=== PATIENT | female | born 1960 | race Caucasian/White ===

== ENCOUNTER 2018-12-05 18:48 | Emergency (ER) | payer MEDICARE, MEDICAID ==
[~2018-12-05] VITALS: Ht 172.7 cm; Wt 81.6 kg
[2018-12-05] MEDS ORDERED: PROM25TA14 PO (19:18)
[2018-12-05] MEDS ORDERED: IBUP-1773 PO (19:18)
[2018-12-05] MEDS ORDERED: DOCU-143 PO (19:18)
[2018-12-05] MEDS ORDERED: ATOR40TA70 PO (19:18)
[2018-12-05] MEDS ORDERED: ZOLM2.5S NS (19:18)
[2018-12-05] MEDS ORDERED: ONDA8TAB6 PO (19:18)
[2018-12-05] MEDS ORDERED: SUMA5SPR2 NS (19:18)
[2018-12-05] MEDS ORDERED: OXYC1TAB12 PO (19:18)
[2018-12-05] MEDS ORDERED: FLUO40CA12 PO (19:18)
[2018-12-05] MEDS ORDERED: DIHY1SPR3 NS (19:18)
[2018-12-05] MEDS ORDERED: LOSA25TA2 PO (19:18)
[2018-12-05] MEDS ORDERED: amovig (19:18)
[2018-12-05] MEDS ORDERED: ALPR0.5T PO (19:18)
[2018-12-05] MEDS ORDERED: ESTR10TA9 VG (19:18)
[2018-12-05] MEDS ORDERED: PROG100C6 PO (19:18)
[2018-12-05] MEDS ORDERED: PROMETHAZINE INJ 25 MG/ML (PHENERGAN) AMP IM STA (19:23)
[2018-12-05] MEDS ORDERED: fentaNYL INJECTION 100 MCG/2 ML AMP IM STA (19:23)
--- NOTE | 2018-12-05 19:55 | ED Headache ---
General Chief Complaint: Head/Cervical Problems Stated Complaint: MIGRAINE, NAUSEA, VOMITING Nursing Triage Note: Patient started having headache aura yesterday around noon. Has taken ibuprofen , zofran, zomig, and dhe for pain. Is rating pain at 10/10 and has been vomiting multiple times. Is overdue for her botox and amovig therapy for the migraines. Nursing Sepsis Screen: No Definite Risk History of Present Illness Date Seen by Provider: Dec 05, 2018 Time Seen by Provider: 19:14 Timing/Duration: other (2 days) Severity/Quality: moderate Location: frontal (left) Prior Headaches/Recent Trauma: chronic headaches Modifying Factors: improves with exposure to light Associated Symptoms: nausea/vomiting This is a 58-year-old female with a history of chronic migraines here complaining of recurrence of her typical migraine symptoms. This is left anterior, retro-orbital. No visual change or focal weakness, numbness, or tingling. She does have nausea and vomiting but this is not new for her. Her neck pain or neck stiffness. Usually has improvement with Botox injections but is overdue for this treatment. Allergies and Home Medications Allergies Coded Allergies: butorphanol (Verified Allergy, Unknown, 12/05/18) diphenhydramine (Verified Allergy, Unknown, 12/05/18) hydroxyzine (Verified Allergy, Unknown, 12/05/18) ketorolac (Verified Allergy, Unknown, 12/05/18) nalbuphine (Verified Allergy, Unknown, 12/05/18) prednisone (Verified Allergy, Unknown, 12/05/18) succinylcholine (Verified Allergy, Unknown, 12/05/18) tramadol (Verified Allergy, Unknown, 12/05/18) Home Medications Docusate Sodium 100 Mg Capsule, 100 MG PO DAILY, (Reported) Ibuprofen 600 Mg Tablet, 600 MG PO Q6H PRN for PAIN-MILD, (Reported) Losartan Potassium 25 Mg Tablet, 25 MG PO DAILY, (Reported) Oxycodone HCl/Acetaminophen 1 Each Tablet, 1 TAB PO Q8H PRN for PAIN-MODERATE, ( Reported) Promethazine HCl 25 Mg Tablet, 25 MG PO Q6H PRN for NAUSEA/VOMITING, (Reported) Patient Home Medication List Home Medication List Reviewed: Yes Review of Systems Review of Systems Constitutional: no symptoms reported Eyes: No Symptoms Reported Ears, Nose, Mouth, Throat: no symptoms reported Respiratory: no symptoms reported Cardiovascular: no symptoms reported Gastrointestinal: see HPI Genitourinary: no symptoms reported Musculoskeletal: no symptoms reported Skin: no symptoms reported Psychiatric/Neurological: Headache Past Mukutre-Xuvjrc-Vhkbcr Hx Patient Social History Alcohol Use: Denies Use Recreational Drug Use: No 2nd Hand Smoke Exposure: No Recent Foreign Travel: No Contact w/Someone Who Travel: No Recent Infectious Disease Expo: No Recent Hopitalizations: No Physical Abuse: No Sexual Abuse: No Mistreated: No Fear: No Past Medical History Respiratory: No Cardiac: No Headaches /Migraines Genitourinary: No Gastrointestinal: No Musculoskeletal: No Endocrine: No HEENT: No Cancer: No Psychosocial: No Integumentary: No Blood Disorders: No Adverse Reaction/Blood Tranf: No Physical Exam Vital Signs Vital Signs - First Documented 12/05/18 18:56 Temp 98.4 Pulse 112 Resp 16 B/P (MAP) 142/74 (96) Pulse Ox 97 Capillary Refill : Less Than 3 Seconds Height, Weight, BMI Height: 5'8.00" Weight: 180lbs. oz. 81.784216qd; BMI Method:Stated General Appearance: other (appears mildly uncomfortable, intermittently vomiting) HEENT: PERRL/EOMI, pharynx normal (edentulous) Neck: supple Cardiovascular: normal peripheral pulses, regular rate, rhythm Respiratory: lungs clear Gastrointestinal: non tender, soft Psychiatric: alert, oriented x 3 Crainal Nerves: normal hearing, normal speech, PERRL; No facial asymmetry, No facial paresthesias, No tongue deviation to R, No tongue deviation to L Coordination/Gait: normal finger to nose, normal gait Motor/Sensory: no motor deficit, no sensory deficit Skin: warm/dry Progress/Results/Core Measures Results/Orders My Orders Orders - LIZET BAUMANN DO Fentanyl Injection (Sublimaze Injection (12/05/18 19:23) Promethazine Injection (Phenergan Injec (12/05/18 19:23) Ondansetron Oral Dissolve Tab (Zofran (12/05/18 20:00) Vital Signs/I&O 12/05/18 12/05/18 18:56 19:42 Temp 98.4 98.4 Pulse 112 Resp 16 B/P (MAP) 142/74 (96) Pulse Ox 97 Blood Pressure Mean: 96 Progress Progress Note #1: Progress Note This is a 58-year-old female with a history of chronic migraines here for a headache that she states is completely typical for her. She states that she usually gets intramuscular injections of fentanyl and Phenergan and goes home. She is neurologically intact. She is nontoxic appearing. Vomiting also is not unusual for her headache syndrome. There is no indication for checking labs or imaging at this time. We'll reassess patient after she has been given analgesics and antiemetics. Progress Note #2: Progress Note Patient was feeling better and wanted to go home to "sleep it off". She did have some additional vomiting when she sat up and felt better after taking Zofran ODT. She would like to go home. She will return for any new or worsening symptoms. She will follow-up with her doctor as soon as possible. Departure Impression Primary Impression: Migraine Disposition: 01 HOME, SELF-CARE Condition: Stable Departure-Patient Inst. Referrals: SELF,ANNETTE ESTRADA (PCP) Primary Care Physician LIZET BAUMANN DO Dec 05, 2018 19:55
[2018-12-05] MEDS ORDERED: ONDANSETRON 4 MG (ZOFRAN) ORAL DISSOLVE TAB PO STA (20:00)
[2018-12-05 20:01] VITALS: BP 125/70
[2018-12-05 20:15] VITALS: BP 125/70
== END 2018-12-05 20:15 | disposition home or self-care (01) ==
LOC: ER FS 18:51
DX: G43.909 Migraine, unspecified, not intractable, without status migrainosus (principal); Z88.8 Allergy status to other drugs, medicaments and biological substances; Z88.4 Allergy status to anesthetic agent; Z88.6 Allergy status to analgesic agent
CPT/HCPCS: 99284

== ENCOUNTER 2018-12-22 19:05 | Emergency (ER) | payer MEDICARE, MEDICAID ==
[~2018-12-22] VITALS: Ht 172.7 cm; Wt 79.4 kg
[~2018-12-22 19:05] MED LIST: ALPR0.5T PO; ATOR40TA70 PO; DIHY1SPR3 NS; DOCU-143 PO; ESTR10TA9 VG; FLUO40CA12 PO; IBUP-1773 PO; LOSA25TA2 PO; ONDA8TAB6 PO; OXYC1TAB12 PO; PROG100C6 PO; PROM25TA14 PO; SUMA5SPR2 NS; ZOLM2.5S NS; amovig
[2018-12-22] MEDS ORDERED: fentaNYL INJECTION 100 MCG/2 ML AMP IM STA (19:28)
[2018-12-22] MEDS ORDERED: PROMETHAZINE INJ 25 MG/ML (PHENERGAN) AMP IM STA (19:28)
--- NOTE | 2018-12-22 19:31 | ED Headache ---
General Chief Complaint: Head/Cervical Problems Stated Complaint: MIGRAINE, NAUSEA, VOMITING History of Present Illness Date Seen by Provider: Dec 22, 2018 Time Seen by Provider: 19:22 This is a 58-year-old female with a history of chronic migraines who is here with her typical migraine symptom. This is a left-sided headache that began gradually 3 days ago. No neck pain or neck stiffness. No visual change or focal weakness, numbness, or tingling. No fever or chills. She states that intramuscular fentanyl and Phenergan usually help her symptoms. Allergies and Home Medications Allergies Coded Allergies: butorphanol (Verified Allergy, Unknown, 12/05/18) diphenhydramine (Verified Allergy, Unknown, 12/05/18) hydroxyzine (Verified Allergy, Unknown, 12/05/18) ketorolac (Verified Allergy, Unknown, 12/05/18) nalbuphine (Verified Allergy, Unknown, 12/05/18) prednisone (Verified Allergy, Unknown, 12/05/18) succinylcholine (Verified Allergy, Unknown, 12/05/18) tramadol (Verified Allergy, Unknown, 12/05/18) Home Medications Docusate Sodium 100 Mg Capsule, 100 MG PO DAILY, (Reported) Ibuprofen 600 Mg Tablet, 600 MG PO Q6H PRN for PAIN-MILD, (Reported) Losartan Potassium 25 Mg Tablet, 25 MG PO DAILY, (Reported) Oxycodone HCl/Acetaminophen 1 Each Tablet, 1 TAB PO Q8H PRN for PAIN-MODERATE, ( Reported) Promethazine HCl 25 Mg Tablet, 25 MG PO Q6H PRN for NAUSEA/VOMITING, (Reported) Patient Home Medication List Home Medication List Reviewed: Yes Review of Systems Review of Systems Constitutional: no symptoms reported Eyes: No Symptoms Reported Ears, Nose, Mouth, Throat: no symptoms reported Respiratory: no symptoms reported Cardiovascular: no symptoms reported Gastrointestinal: no symptoms reported Genitourinary: no symptoms reported Musculoskeletal: no symptoms reported Skin: no symptoms reported Psychiatric/Neurological: See HPI Past Vjrjzjg-Muqlns-Ctvxig Hx Past Med/Social Hx: Reviewed Nursing Past Med/Soc Hx Patient Social History 2nd Hand Smoke Exposure: No Recent Foreign Travel: No Contact w/Someone Who Travel: No Recent Hopitalizations: No Past Medical History Respiratory: No Cardiac: No Headaches /Migraines Genitourinary: No Gastrointestinal: No Musculoskeletal: No Endocrine: No HEENT: No Cancer: No Psychosocial: No Integumentary: No Blood Disorders: No Adverse Reaction/Blood Tranf: No Physical Exam Vital Signs Vital Signs - First Documented 12/22/18 19:13 Temp 98.8 Pulse 91 Resp 16 B/P (MAP) 138/80 (99) Pulse Ox 99 O2 Delivery Room Air Capillary Refill : Height, Weight, BMI Height: 5'8.00" Weight: 180lbs. oz. 81.859705zs; BMI Method:Stated General Appearance: no apparent distress HEENT: PERRL/EOMI, pharynx normal Neck: supple Cardiovascular: normal peripheral pulses, regular rate, rhythm Respiratory: lungs clear Gastrointestinal: non tender, soft Psychiatric: alert, oriented x 3; No depressed affect Crainal Nerves: normal hearing, normal speech, PERRL; No facial droop, No facial paresthesias, No gaze palsy, No tongue deviation to R, No tongue deviation to L Coordination/Gait: normal finger to nose, normal gait Motor/Sensory: no motor deficit, no sensory deficit Skin: warm/dry Progress/Results/Core Measures Results/Orders My Orders Orders - LIZET BAUMANN DO Fentanyl Injection (Sublimaze Injection (12/22/18 19:28) Promethazine Injection (Phenergan Injec (12/22/18 19:28) Vital Signs/I&O 12/22/18 19:13 Temp 98.8 Pulse 91 Resp 16 B/P (MAP) 138/80 (99) Pulse Ox 99 O2 Delivery Room Air Progress Progress Note #1: Progress Note Patient is nontoxic appearing and says that this headache is identical to many prior. We will treat her symptomatically and will continue to monitor. Progress Note #2: Progress Note Patient feels much better and is requesting to go home. Stable for discharge. Follow-up with primary care physician. Departure Impression Primary Impression: Headache Disposition: 01 HOME, SELF-CARE Condition: Stable Departure-Patient Inst. Referrals: ANNETTE OBRIEN MD (PCP) Primary Care Physician Patient Instructions: Headache, Adult (DC) LIZET BAUMANN DO Dec 22, 2018 19:31
[2018-12-22 20:29] VITALS: BP 136/75
== END 2018-12-22 20:29 | disposition home or self-care (01) ==
LOC: EDUNIT# 19:05 → ER FS 19:08
DX: R51 Headache (principal); Z88.8 Allergy status to other drugs, medicaments and biological substances; Z88.4 Allergy status to anesthetic agent; Z86.69 Personal history of other diseases of the nervous system and sense organs; Z88.6 Allergy status to analgesic agent
CPT/HCPCS: 99284

== ENCOUNTER 2019-01-17 16:39 | Emergency (ER) | payer MEDICARE, MEDICAID ==
[~2019-01-17] VITALS: Ht 172.7 cm; Wt 79.4 kg
--- NOTE | 2019-01-17 16:57 | ED Headache ---
General Stated Complaint: MIGRAINE, NAUSEA History of Present Illness Date Seen by Provider: Jan 17, 2019 Time Seen by Provider: 16:57 Initial Comments Patient presents to emergency department for evaluation of migraine headache she describes as behind both eyes causing photophobia and nausea but no fevers chills vomiting neck stiffness unilateral weakness numbness tingling or neurologic changes. She has a long-standing history of migraines and has to come into the emergency department approximately once every month she says this headache is not particularly different or worse but her home medications are not helping. She says she is scheduled for Botox next week. Allergies and Home Medications Allergies Coded Allergies: butorphanol (Verified Allergy, Unknown, 01/17/19) diphenhydramine (Verified Allergy, Unknown, 01/17/19) hydroxyzine (Verified Allergy, Unknown, 01/17/19) ketorolac (Verified Allergy, Unknown, 01/17/19) nalbuphine (Verified Allergy, Unknown, 01/17/19) prednisone (Verified Allergy, Unknown, 01/17/19) succinylcholine (Verified Allergy, Unknown, 01/17/19) tramadol (Verified Allergy, Unknown, 01/17/19) Home Medications Docusate Sodium 100 Mg Capsule, 100 MG PO DAILY, (Reported) Ibuprofen 600 Mg Tablet, 600 MG PO Q6H PRN for PAIN-MILD, (Reported) Losartan Potassium 25 Mg Tablet, 25 MG PO DAILY, (Reported) Oxycodone HCl/Acetaminophen 1 Each Tablet, 1 TAB PO Q8H PRN for PAIN-MODERATE, ( Reported) Promethazine HCl 25 Mg Tablet, 25 MG PO Q6H PRN for NAUSEA/VOMITING, (Reported) Patient Home Medication List Home Medication List Reviewed: Yes Review of Systems Review of Systems Constitutional: No chills, No fever Eyes: Denies Blurred Vision; Photophobia Respiratory: No short of breath Cardiovascular: No chest pain Gastrointestinal: nausea; No vomiting Psychiatric/Neurological: Headache; Denies Numbness, Denies Tingling, Denies Weakness All Other Systems Reviewed Negative Unless Noted: Yes Past Wowgoia-Nitmlx-Zbhmrn Hx Patient Social History 2nd Hand Smoke Exposure: No Recent Foreign Travel: No Contact w/Someone Who Travel: No Recent Hopitalizations: No Immunizations Up To Date Tetanus Booster (TDap): Unknown Seasonal Allergies Seasonal Allergies: No Past Medical History Surgeries: Yes (BILATERAL MASTECTOMY, BILAT BREAST AUGMENTATION) Appendectomy, Orthopedic Respiratory: No Cardiac: Yes Hypertension Neurological: Yes 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 oz. 79.785655nu; BMI Method:Stated General Appearance: WD/WN, no apparent distress HEENT: PERRL/EOMI Neck: non-tender Cardiovascular: normal peripheral pulses, regular rate, rhythm Respiratory: no respiratory distress, no accessory muscle use Psychiatric: alert, oriented x 3 Skin: normal color, warm/dry Progress/Results/Core Measures Results/Orders My Orders Orders - BRADLEY COOK DO Promethazine Injection (Phenergan Injec (01/17/19 17:00) Fentanyl Injection (Sublimaze Injection (01/17/19 17:00) Vital Signs/I&O 01/17/19 16:51 Temp 97.0 Pulse 87 Resp 18 B/P (MAP) 149/84 (105) Pulse Ox 98 Progress Progress Note : Progress Note Patient given her typical Phenergan and fentanyl intramuscularly. She says she goes hope and rests and then wakes up better. Given she appears well with normal neuro exam and no red flag s/s will dc in stable condition with instructions to return with any concerns. Departure Impression Primary Impression: Migraine Disposition: 01 HOME, SELF-CARE Condition: Stable Departure-Patient Inst. Decision time for Depature: 17:08 Referrals: SELFANNETTE MD (PCP) Primary Care Physician Patient Instructions: Migraine Headache (DC) BRADLEY COOK DO Jan 17, 2019 16:57
[2019-01-17] MEDS ORDERED: PROMETHAZINE INJ 25 MG/ML (PHENERGAN) AMP IM ONE (17:00)
[2019-01-17] MEDS ORDERED: fentaNYL INJECTION 100 MCG/2 ML AMP IM ONE (17:00)
[2019-01-17 17:19] VITALS: BP 149/84
== END 2019-01-17 17:20 | disposition home or self-care (01) ==
LOC: EDUNIT# 16:39 → ER FS 16:40
DX: G43.909 Migraine, unspecified, not intractable, without status migrainosus (principal); I10 Essential (primary) hypertension; F32.9 Major depressive disorder, single episode, unspecified; Z98.51 Tubal ligation status; Z88.8 Allergy status to other drugs, medicaments and biological substances; Z88.4 Allergy status to anesthetic agent; Z88.6 Allergy status to analgesic agent; Z90.13 Acquired absence of bilateral breasts and nipples; Z90.49 Acquired absence of other specified parts of digestive tract
CPT/HCPCS: 99284

== ENCOUNTER 2019-01-27 19:43 | Emergency (ER) | payer MEDICARE, MEDICAID ==
[~2019-01-27] VITALS: Ht 172.7 cm; Wt 79.4 kg
[2019-01-27] MEDS ORDERED: BUT (20:44)
[2019-01-27] MEDS ORDERED: APAP (20:44)
[2019-01-27] MEDS ORDERED: CAF (20:44)
[2019-01-27] MEDS ORDERED: PROMETHAZINE INJ 25 MG/ML (PHENERGAN) AMP IM ONE (21:00)
[2019-01-27] MEDS ORDERED: fentaNYL INJECTION 100 MCG/2 ML AMP IM ONE (21:00)
--- NOTE | 2019-01-27 21:13 | ED Headache ---
General Chief Complaint: Head/Cervical Problems Stated Complaint: HEADACHE History of Present Illness Date Seen by Provider: Jan 27, 2019 Time Seen by Provider: 21:13 Initial Comments Patient presenting to ED for evaluation of a headache. She says it has been going on all day long and is not getting better. She has associated nausea and photophobia but no fevers, chills, nausea, vomiting, neck stiffness. She has a history of migraine headaches and says that this headache is exactly the same as prior migraine headaches. She says it is not worse and there is no difference in the type of pain. She says she usually gets fentanyl and Phenergan intramuscularly and goes home and sleeps and her pain is much improved. Patient was seen by me 10 days ago for the same and she appears exactly the same. She is in no obvious distress with normal vital signs. Allergies and Home Medications Allergies Coded Allergies: butorphanol (Verified Allergy, Unknown, 01/27/19) diphenhydramine (Verified Allergy, Unknown, 01/27/19) hydroxyzine (Verified Allergy, Unknown, 01/27/19) ketorolac (Verified Allergy, Unknown, 01/27/19) nalbuphine (Verified Allergy, Unknown, 01/27/19) prednisone (Verified Allergy, Unknown, 01/27/19) succinylcholine (Verified Allergy, Unknown, 01/27/19) tramadol (Verified Allergy, Unknown, 01/27/19) Home Medications Docusate Sodium 100 Mg Capsule, 100 MG PO DAILY, (Reported) Ibuprofen 600 Mg Tablet, 600 MG PO Q6H PRN for PAIN-MILD, (Reported) Losartan Potassium 25 Mg Tablet, 25 MG PO DAILY, (Reported) Oxycodone HCl/Acetaminophen 1 Each Tablet, 1 TAB PO Q8H PRN for PAIN-MODERATE, ( Reported) Promethazine HCl 25 Mg Tablet, 25 MG PO Q6H PRN for NAUSEA/VOMITING, (Reported) Patient Home Medication List Home Medication List Reviewed: Yes Review of Systems Review of Systems Constitutional: No chills, No fever Eyes: Denies Blurred Vision Respiratory: No short of breath Cardiovascular: No chest pain Gastrointestinal: nausea; No vomiting Psychiatric/Neurological: Headache All Other Systems Reviewed Negative Unless Noted: Yes Past Gjbjlcq-Kafbxe-Qpavtx Hx Patient Social History 2nd Hand Smoke Exposure: No Recent Foreign Travel: No Contact w/Someone Who Travel: No Recent Hopitalizations: No Immunizations Up To Date Tetanus Booster (TDap): Unknown Seasonal Allergies Seasonal Allergies: No Past Medical History Surgeries: Yes (BILATERAL MASTECTOMY, BILAT BREAST AUGMENTATION) Appendectomy, Orthopedic Respiratory: No Cardiac: Yes Hypertension Neurological: Yes 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 oz. 79.667986jl; BMI Method:Stated General Appearance: WD/WN HEENT: PERRL/EOMI Cardiovascular: regular rate, rhythm Respiratory: lungs clear, normal breath sounds Psychiatric: alert, oriented x 3 Coordination/Gait: normal finger to nose, normal gait Motor/Sensory: no motor deficit, no sensory deficit Skin: normal color, warm/dry Progress/Results/Core Measures Results/Orders Medications Given in ED Current Medications Medications Dose Ordered Sig/Ronaldo Route Start Time Stop Time Status Last Admin Dose Admin Fentanyl Citrate 50 mcg ONCE ONCE IM 01/27/19 21:00 01/27/19 21:01 DC 01/27/19 21:12 50 MCG Promethazine HCl 50 mg ONCE ONCE IM 01/27/19 21:00 01/27/19 21:01 DC 01/27/19 21:11 50 MG Progress Progress Note : Progress Note Patient given typical migraine cocktail and is feeling better. Repeat neurologic exam is normal. Even patient appears well with normal vital signs benign physical exam she'll be discharged in stable condition told to follow with primary care provider and come back to the ED sooner if worsening pain fevers vomiting vaginal concerns. Patient aware and agreeable with plan and verbalized understanding of the above instructions. Departure Impression Primary Impression: Headache Disposition: 01 HOME, SELF-CARE Condition: Stable Departure-Patient Inst. Decision time for Depature: 21:19 Referrals: SELFANNETTE MD (PCP/Family) Primary Care Physician BRADLEY COOK DO Jan 27, 2019 21:13
[2019-01-27 21:20] VITALS: BP 134/82
== END 2019-01-27 21:20 | disposition home or self-care (01) ==
LOC: EDUNIT# 19:43 → ER FS 19:45
DX: R51 Headache (principal); I10 Essential (primary) hypertension; F32.9 Major depressive disorder, single episode, unspecified; Z98.51 Tubal ligation status; Z88.8 Allergy status to other drugs, medicaments and biological substances; Z86.69 Personal history of other diseases of the nervous system and sense organs; Z88.6 Allergy status to analgesic agent; Z88.4 Allergy status to anesthetic agent; Z90.13 Acquired absence of bilateral breasts and nipples; Z90.49 Acquired absence of other specified parts of digestive tract
CPT/HCPCS: 96372; 99284

== ENCOUNTER 2019-02-16 10:27 | Emergency (ER) | payer MEDICARE, MEDICAID ==
[~2019-02-16] VITALS: Ht 172.7 cm; Wt 79.4 kg
[~2019-02-16 10:27] MED LIST changes: +APAP; +BUT; +CAF
--- NOTE | 2019-02-16 10:57 | ED Headache ---
General Chief Complaint: Head/Cervical Problems Stated Complaint: HEADACHE Nursing Triage Note: Patient c/o migraine, nausea, and vomiting. States migraine started Tuesday afternoon and she has tried all of her home medications with no relief. Nursing Sepsis Screen: No Definite Risk Source: patient, RN notes reviewed, old records Exam Limitations: no limitations History of Present Illness Date Seen by Provider: February 16, 2019 Time Seen by Provider: 10:48 Initial Comments Patient presents once again c/ c/o migraine and requesting an injection of Fentanyl and Phenergan IM. Believe this is her 4th visit for 2019. States she has a long history of Migraines and this one is similar. This one started . Very nauseated. States her Neurologist is in [place]. States she tried all her home meds s/ success. No known fever. No history of recent head injury, or trauma. Timing/Duration: constant (x 3 days) Severity/Quality: moderate (8/10), constant, throbbing Location: other (left sided) Prior Headaches/Recent Trauma: frequent headaches Modifying Factors: improves with other (none known) Associated Symptoms: denies symptoms (x/ as noted.) Allergies and Home Medications Allergies Coded Allergies: butorphanol (Verified Allergy, Unknown, 01/27/19) diphenhydramine (Verified Allergy, Unknown, 01/27/19) hydroxyzine (Verified Allergy, Unknown, 01/27/19) ketorolac (Verified Allergy, Unknown, 01/27/19) nalbuphine (Verified Allergy, Unknown, 01/27/19) prednisone (Verified Allergy, Unknown, 01/27/19) succinylcholine (Verified Allergy, Unknown, 01/27/19) tramadol (Verified Allergy, Unknown, 01/27/19) Home Medications Docusate Sodium 100 Mg Capsule, 100 MG PO DAILY, (Reported) Ibuprofen 600 Mg Tablet, 600 MG PO Q6H PRN for PAIN-MILD, (Reported) Losartan Potassium 25 Mg Tablet, 25 MG PO DAILY, (Reported) Oxycodone HCl/Acetaminophen 1 Each Tablet, 1 TAB PO Q8H PRN for PAIN-MODERATE, ( Reported) Promethazine HCl 25 Mg Tablet, 25 MG PO Q6H PRN for NAUSEA/VOMITING, (Reported) Patient Home Medication List Home Medication List Reviewed: Yes Review of Systems Review of Systems Constitutional: see HPI Eyes: See HPI, Photophobia Gastrointestinal: see HPI, nausea : No Psychiatric/Neurological: See HPI, Headache All Other Systems Reviewed Negative Unless Noted: Yes (Negative excepted noted.) Past Uzxqvnf-Tilqah-Qmthmg Hx Patient Social History Alcohol Use: Denies Use Recreational Drug Use: No Smoking Status: Never a Smoker 2nd Hand Smoke Exposure: No Recent Foreign Travel: No Contact w/Someone Who Travel: No Recent Infectious Disease Expo: No Recent Hopitalizations: No Physical Abuse: No Sexual Abuse: No Mistreated: No Fear: No Immunizations Up To Date Tetanus Booster (TDap): Unknown Seasonal Allergies Seasonal Allergies: No Past Medical History Surgeries: Yes (BILATERAL MASTECTOMY, BILAT BREAST AUGMENTATION) Appendectomy, Orthopedic, Tubal Ligation Respiratory: No Cardiac: Yes Hypertension Neurological: Yes 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 oz. 79.093347vc; BMI Method:Stated General Appearance: WD/WN, mild distress HEENT: PERRL/EOMI, photophobia Neck: supple Cardiovascular: regular rate, rhythm Respiratory: no respiratory distress Psychiatric: alert, oriented x 3, depressed affect Crainal Nerves: normal hearing, normal speech, PERRL Coordination/Gait: normal finger to nose Motor/Sensory: no pronator drift Skin: warm/dry Progress/Results/Core Measures Results/Orders My Orders Orders - LUCINA CROWLEY DO Fentanyl Injection (Sublimaze Injection (02/16/19 11:00) Promethazine Injection (Phenergan Injec (02/16/19 11:00) Vital Signs/I&O 02/16/19 10:34 Temp 97.8 Pulse 80 Resp 20 B/P (MAP) 127/70 (89) Pulse Ox 97 O2 Delivery Room Air Blood Pressure Mean: 89 Progress Progress Note : Progress Note Against my better judgement, I'm going to go ahead and give her her requested cocktail. Did share c/ the patient my concerns c/ continuing to treat her headaches this way. Find it difficult to believe she is truly allergic to all the medications listed, especially when the majority of them are used in several migraine protocols in an effort not to give narcotics. She states she is working on wean her narcotics down. Has reportedly had one round of Botox, but then she states she broke both of her ankles and hasn't been able to follow up. States she is trying to qualify for assistance for some of the newer migraine prevention meds. Departure Impression Primary Impression: Migraine Additional Impression: Narcotic dependence Disposition: 01 HOME, SELF-CARE Condition: Stable Departure-Patient Inst. Referrals: SELF,ANNETTE ESTRADA (PCP/Family) Primary Care Physician Patient Instructions: Migraine Headache (DC) LUCINA CROWLEY DO February 16, 2019 10:57
[2019-02-16] MEDS ORDERED: PROMETHAZINE INJ 25 MG/ML (PHENERGAN) AMP IM ONE (11:00)
[2019-02-16] MEDS ORDERED: fentaNYL INJECTION 100 MCG/2 ML AMP IM ONE (11:00)
[2019-02-16 11:17] VITALS: BP 125/68
== END 2019-02-16 11:17 | disposition home or self-care (01) ==
LOC: EDUNIT# 10:27 → ER FS 10:29
DX: G43.909 Migraine, unspecified, not intractable, without status migrainosus (principal); F11.20 Opioid dependence, uncomplicated; I10 Essential (primary) hypertension; F32.9 Major depressive disorder, single episode, unspecified; Z88.8 Allergy status to other drugs, medicaments and biological substances; Z88.6 Allergy status to analgesic agent; Z88.4 Allergy status to anesthetic agent; Z90.13 Acquired absence of bilateral breasts and nipples; Z90.49 Acquired absence of other specified parts of digestive tract; Z98.51 Tubal ligation status
CPT/HCPCS: 96372

== ENCOUNTER 2019-03-13 15:04 | Emergency (ER) | payer MEDICARE, MEDICAID ==
[~2019-03-13] VITALS: Ht 172.7 cm; Wt 79.4 kg
[2019-03-13] MEDS ORDERED: fentaNYL INJECTION 100 MCG/2 ML AMP IM STA (15:55)
--- NOTE | 2019-03-13 15:59 | ED Headache ---
General Chief Complaint: Head/Cervical Problems Stated Complaint: MIGRAINE Nursing Triage Note: PT REPORTS SHE HAS ANOTHER MIGRAINE (6TH VISIT) IN LAST FEW MONTHS. SHE IS REQUESTING 50 MG OF PHENERGAN AND FENTANYL. PHOTOPHOBIA. Nursing Sepsis Screen: No Definite Risk History of Present Illness Date Seen by Provider: Mar 13, 2019 Time Seen by Provider: 15:20 Initial Comments The patient is a 59-year-old female with a long and disabling history of migraine headaches. She follows very closely with a headache neurologist for her disabling weekly headaches and has innumerable medications at home to treat them, including oxycodone which she is slowly being weaned off by her neurologist. She presents with concern for several days of gradual onset headache which she states feels identical to her typical migraine headaches. Associated nausea and photophobia and phonophobia. No associated fevers, focal weakness, numbness, tingling, neck stiffness, vision changes, shortness of breath or chest pain. Patient states she typically gets a cocktail of fentanyl and Phenergan for her headaches. I did speak with her at some length about this treatment and that it is not standard of care for headache at this time but after discussion I explained to her that I was willing to provide this treatment as she is already on a home narcotic, with the caveat that I feel it is probably not the best choice for long-term ongoing use. Patient understood and agreed. Allergies and Home Medications Allergies Coded Allergies: butorphanol (Verified Allergy, Unknown, 01/27/19) diphenhydramine (Verified Allergy, Unknown, 01/27/19) hydroxyzine (Verified Allergy, Unknown, 01/27/19) ketorolac (Verified Allergy, Unknown, 01/27/19) nalbuphine (Verified Allergy, Unknown, 01/27/19) prednisone (Verified Allergy, Unknown, 01/27/19) succinylcholine (Verified Allergy, Unknown, 01/27/19) tramadol (Verified Allergy, Unknown, 01/27/19) Home Medications Docusate Sodium 100 Mg Capsule, 100 MG PO DAILY, (Reported) Ibuprofen 600 Mg Tablet, 600 MG PO Q6H PRN for PAIN-MILD, (Reported) Losartan Potassium 25 Mg Tablet, 25 MG PO DAILY, (Reported) Oxycodone HCl/Acetaminophen 1 Each Tablet, 1 TAB PO Q8H PRN for PAIN-MODERATE, (Reported) Promethazine HCl 25 Mg Tablet, 25 MG PO Q6H PRN for NAUSEA/VOMITING, (Reported) Patient Home Medication List Home Medication List Reviewed: Yes Review of Systems Review of Systems Constitutional: see HPI All Other Systems Reviewed Negative Unless Noted: Yes Past Uwvyhyy-Ffohst-Mlgknm Hx Past Med/Social Hx: Reviewed Nursing Past Med/Soc Hx Patient Social History Alcohol Use: Denies Use Recreational Drug Use: No Smoking Status: Never a Smoker 2nd Hand Smoke Exposure: No Recent Foreign Travel: No Contact w/Someone Who Travel: No Recent Infectious Disease Expo: No Recent Hopitalizations: No Physical Abuse: No Sexual Abuse: No Mistreated: No Fear: No Immunizations Up To Date Tetanus Booster (TDap): Unknown Seasonal Allergies Seasonal Allergies: No Past Medical History Surgeries: Yes (BILATERAL MASTECTOMY, BILAT BREAST AUGMENTATION) Appendectomy, Orthopedic, Tubal Ligation Respiratory: No Cardiac: Yes Hypertension Neurological: Yes Headaches /Migraines [employer] History: Tubal Ligation Genitourinary: No Gastrointestinal: Yes (ESOPHAGEAL STRICTURE) Musculoskeletal: No Endocrine: No HEENT: No Cancer: No Psychosocial: Yes Depression Integumentary: No Blood Disorders: No Adverse Reaction/Blood Tranf: No Family Medical History Reviewed Nursing Family Hx Physical Exam Vital Signs Vital Signs - First Documented 03/13/19 15:36 Temp 97.7 Pulse 87 Resp 20 B/P (MAP) 126/64 (84) O2 Delivery Room Air Capillary Refill : Less Than 3 Seconds Height, Weight, BMI Height: 5'8.00" Weight: 175lbs. oz. 79.650466kx; BMI Method:Stated General Appearance: no apparent distress Comments This is an older female appearing nontoxic and in no acute distress. Head is normocephalic and atraumatic. Neck is supple and nontender. Oropharynx is moist. Lungs are clear to auscultation at all stations. There is normal S1 and S2 without rubs or gallops and capillary refill is appropriate, less than 2 seconds globally. Abdomen is soft, nontender nondistended. Skin is warm and dry without cyanosis, clubbing or edema. Psychiatrically, the patient was treated appropriate mood and affect and is alert. From a neurologic standpoint, cranial nerves II through XII are intact and there are no lateralizing deficits noted. Speech is normal. Language is normal. Coordination is normal. There is no dysmetria to zyvbrl-jj-hfpf or ybbf-hs-ykyk bilaterally. Strength is 5 out of 5 in all joints of bilateral upper and lower caries. Sensation is intact light touch in bilateral upper and lower extremities. Patient is alert and oriented 4. She ambulates with a narrow, steady gait in the emergency department. Progress/Results/Core Measures Results/Orders My Orders Orders - LEANDRO COOPER MD Promethazine Injection (Phenergan Injec (03/13/19 16:00) Fentanyl Injection (Sublimaze Injection (03/13/19 15:55) Vital Signs/I&O 03/13/19 15:36 Temp 97.7 Pulse 87 Resp 20 B/P (MAP) 126/64 (84) O2 Delivery Room Air Blood Pressure Mean: 84 Progress Progress Note : Time: 16:08 Progress Note Patient is feeling better after medication. She feels ready to go home. No red flags for her headache today. We'll discharge and have her follow-up in the next 1-2 days with her primary care physician and with her neurologist. She un derstands and agrees. She understands if she feels worse instead of better or develops other new symptoms of concern that she should return immediately for reevaluation. All questions are answered. Departure Impression Primary Impression: Headache Disposition: 01 HOME, SELF-CARE Condition: Improved Departure-Patient Inst. Referrals: ANNETTE OBRIEN MD (PCP/Family) Primary Care Physician Add. Discharge Instructions: Follow-up in the next 1-2 days with her primary care physician and with her neurologist. Return right away if symptoms worsen or if other symptoms of concern develop. Use her home medications for headache as prescribed. LEANDRO COOPER MD Mar 13, 2019 15:59
[2019-03-13] MEDS ORDERED: PROMETHAZINE INJ 25 MG/ML (PHENERGAN) AMP IM ONE (16:00)
[2019-03-13 16:10] VITALS: BP 141/85
--- OUTSIDE RECORDS SUMMARY | 2019-03-13 20:11 | XMS REPORT | Continuity of Care Document ---
Author Organization Unknown Address Unknown Allergies Active Description Code Type Severity Reaction Onset Reported/Identified Relationship to Patient Clinical Status Yes butorphanol [id number] Drug Allergy Unknown N/A 01/27/2019 Yes diphenhydramine [id number] Drug Allergy Unknown N/A 01/27/2019 Yes hydroxyzine [id number] Drug Allergy Unknown N/A 01/27/2019 Yes ketorolac [id number] Drug Allergy Unknown N/A 01/27/2019 Yes nalbuphine [id number] Drug Allergy Unknown N/A 01/27/2019 Yes prednisone [id number] Drug Allergy Unknown N/A 01/27/2019 Yes succinylcholine [id number] Drug Allergy Unknown N/A 01/27/2019 Yes tramadol [id number] Drug Allergy Unknown N/A 01/27/2019 Medications There is no data. Problems Date Dx Coded Attending Type Code Diagnosis Diagnosed By 12/05/2018 LIZET BAUMANN DO Ot G43.909 MIGRAINE, UNSP, NOT INTRACTABLE, WITHOUT 12/05/2018 LIZET BAUMANN DO T Ot Z88.4 ALLERGY STATUS TO ANESTHETIC AGENT STATU 12/05/2018 LIZET BAUMANN DO T Ot Z88.6 ALLERGY STATUS TO ANALGESIC AGENT STATUS 12/05/2018 LIZET BAUMANN DO T Ot Z88.8 ALLERGY STATUS TO OTH DRUG/MEDS/BIOL SUB 12/07/2018 LIZET BAUMANN DO Ot G43.909 MIGRAINE, UNSP, NOT INTRACTABLE, WITHOUT 12/07/2018 LIZET BAUMANN DO Ot Z88.4 ALLERGY STATUS TO ANESTHETIC AGENT STATU 12/07/2018 LIZET BAUMANN DO Ot Z88.6 ALLERGY STATUS TO ANALGESIC AGENT STATUS 12/07/2018 LIZET BAUMANN DO Ot Z88.8 ALLERGY STATUS TO OTH DRUG/MEDS/BIOL SUB 12/22/2018 LIZET BAUMANN DO Ot G43.909 MIGRAINE, UNSP, NOT INTRACTABLE, WITHOUT 12/22/2018 PASTOR AMBROSIO LIZET T Ot R51 HEADACHE 12/22/2018 PASTOR AMBROSIO, LIZET T Ot Z86.69 PERSONAL HISTORY OF DIS OF THE NERVOUS S 12/22/2018 LIZET BAUMANN DO T Ot Z88.4 ALLERGY STATUS TO ANESTHETIC AGENT STATU 12/22/2018 LIZET BAUMANN DO T Ot Z88.6 ALLERGY STATUS TO ANALGESIC AGENT STATUS 12/22/2018 LIZET BAUMANN DO T Ot Z88.8 ALLERGY STATUS TO OTH DRUG/MEDS/BIOL SUB 12/25/2018 LIZET BAUMANN DO T Ot G43.909 MIGRAINE, UNSP, NOT INTRACTABLE, WITHOUT 12/25/2018 PASTOR AMBROSIO LIZET T Ot R51 HEADACHE 12/25/2018 OC BAUMANN DOED T Ot Z86.69 PERSONAL HISTORY OF DIS OF THE NERVOUS S 12/25/2018 LIZET BAUMANN DO T Ot Z88.4 ALLERGY STATUS TO ANESTHETIC AGENT STATU 12/25/2018 LIZET BAUMANN DO T Ot Z88.6 ALLERGY STATUS TO ANALGESIC AGENT STATUS 12/25/2018 LIZET BAUMANN DO T Ot Z88.8 ALLERGY STATUS TO OTH DRUG/MEDS/BIOL SUB 01/17/2019 BRADLEY COOK DO, Ot F32.9 MAJOR DEPRESSIVE DISORDER, SINGLE EPISOD 01/17/2019 BRADLEY COOK DO, Ot G43.909 MIGRAINE, UNSP, NOT INTRACTABLE, WITHOUT 01/17/2019 BRADLEY COOK DO Ot I10 ESSENTIAL (PRIMARY) HYPERTENSION 01/17/2019 BRADLEY COOK DO Ot Z88.4 ALLERGY STATUS TO ANESTHETIC AGENT STATU 01/17/2019 BRADLEY COOK DO Ot Z88.6 ALLERGY STATUS TO ANALGESIC AGENT STATUS 01/17/2019 BRADLEY COOK DO Ot Z88.8 ALLERGY STATUS TO OTH DRUG/MEDS/BIOL SUB 01/17/2019 BRADLEY COOK DO Ot Z90.13 ACQUIRED ABSENCE OF BILATERAL BREASTS AN 01/17/2019 BRADLEY COOK DO Ot Z90.49 ACQUIRED ABSENCE OF OTHER SPECIFIED PART 01/17/2019 BRADLEY COOK DO Ot Z98.51 TUBAL LIGATION STATUS 01/19/2019 BRADLEY COOK DO Ot F32.9 MAJOR DEPRESSIVE DISORDER, SINGLE EPISOD 01/19/2019 BRADLEY COOK DO Ot G43.909 MIGRAINE, UNSP, NOT INTRACTABLE, WITHOUT 01/19/2019 BRADLEY COKO DO Ot I10 ESSENTIAL (PRIMARY) HYPERTENSION 01/19/2019 BRADLEY COOK DO Ot Z88.4 ALLERGY STATUS TO ANESTHETIC AGENT STATU 01/19/2019 BRADLEY COOK DO Ot Z88.6 ALLERGY STATUS TO ANALGESIC AGENT STATUS 01/19/2019 BRADLEY COOK DO Ot Z88.8 ALLERGY STATUS TO OTH DRUG/MEDS/BIOL SUB 01/19/2019 BRADLEY COOK DO Ot Z90.13 ACQUIRED ABSENCE OF BILATERAL BREASTS AN 01/19/2019 BRADLEY COOK DO Ot Z90.49 ACQUIRED ABSENCE OF OTHER SPECIFIED PART 01/19/2019 BRADLEY COOK DO Ot Z98.51 TUBAL LIGATION STATUS 01/27/2019 BRADLEY COOK DO Ot F32.9 MAJOR DEPRESSIVE DISORDER, SINGLE EPISOD 01/27/2019 BRADLEY COOK DO Ot I10 ESSENTIAL (PRIMARY) HYPERTENSION 01/27/2019 BRADLEY COOK DO Ot R51 HEADACHE 01/27/2019 BRADLEY COOK DO Ot Z86.69 PERSONAL HISTORY OF DIS OF THE NERVOUS S 01/27/2019 BRADLEY COOK DO Ot Z88.4 ALLERGY STATUS TO ANESTHETIC AGENT STATU 01/27/2019 BRADLEY COOK DO Ot Z88.6 ALLERGY STATUS TO ANALGESIC AGENT STATUS 01/27/2019 BRADLEY COOK DO Ot Z88.8 ALLERGY STATUS TO OTH DRUG/MEDS/BIOL SUB 01/27/2019 BRADLEY COOK DO Ot Z90.13 ACQUIRED ABSENCE OF BILATERAL BREASTS AN 01/27/2019 BRADLEY COOK DO Ot Z90.49 ACQUIRED ABSENCE OF OTHER SPECIFIED PART 01/27/2019 BRADLEY COOK DO Ot Z98.51 TUBAL LIGATION STATUS 01/30/2019 BRADLEY COOK DO Ot F32.9 MAJOR DEPRESSIVE DISORDER, SINGLE EPISOD 01/30/2019 BRADLEY COOK DO Ot I10 ESSENTIAL (PRIMARY) HYPERTENSION 01/30/2019 BRADLEY COOK DO Ot R51 HEADACHE 01/30/2019 BRADLEY COOK DO Ot Z86.69 PERSONAL HISTORY OF DIS OF THE NERVOUS S 01/30/2019 BRADLEY COOK DO Ot Z88.4 ALLERGY STATUS TO ANESTHETIC AGENT STATU 01/30/2019 BRADLEY COOK DO Ot Z88.6 ALLERGY STATUS TO ANALGESIC AGENT STATUS 01/30/2019 BRADLEY COOK DO Ot Z88.8 ALLERGY STATUS TO OTH DRUG/MEDS/BIOL SUB 01/30/2019 BRADLEY COOK DO Ot Z90.13 ACQUIRED ABSENCE OF BILATERAL BREASTS AN 01/30/2019 BRADLEY COOK DO Ot Z90.49 ACQUIRED ABSENCE OF OTHER SPECIFIED PART 01/30/2019 BRADLEY COOK DO Ot Z98.51 TUBAL LIGATION STATUS 02/16/2019 LUCINA CROWLEY DO, Ot F11.20 OPIOID DEPENDENCE, UNCOMPLICATED 02/16/2019 LUCINA CROWLEY DO, Ot F32.9 MAJOR DEPRESSIVE DISORDER, SINGLE EPISOD 02/16/2019 LUCINA CROWLEY DO, Ot G43.909 MIGRAINE, UNSP, NOT INTRACTABLE, WITHOUT 02/16/2019 LUCINA CROWLEY DO, Ot I10 ESSENTIAL (PRIMARY) HYPERTENSION 02/16/2019 LUCINA CROWLEY DO, Ot Z88.4 ALLERGY STATUS TO ANESTHETIC AGENT STATU 02/16/2019 LUCINA CROWLEY DO, Ot Z88.6 ALLERGY STATUS TO ANALGESIC AGENT STATUS 02/16/2019 LUCINA CROWLEY DO, Ot Z88.8 ALLERGY STATUS TO OTH DRUG/MEDS/BIOL SUB 02/16/2019 LUCINA CROWLEY DO, Ot Z90.13 ACQUIRED ABSENCE OF BILATERAL BREASTS AN 02/16/2019 LUCINA CROWLEY DO, Ot Z90.49 ACQUIRED ABSENCE OF OTHER SPECIFIED PART 02/16/2019 LUCINA CROWLEY DO, Ot Z98.51 TUBAL LIGATION STATUS Procedures There is no data. Results There is no data. Encounters ACCT No. Visit Date/Time Discharge Status Pt. Type Provider Facility Loc./Unit Complaint [id number] 02/16/2019 10:29:00 02/16/2019 11:17:00 DIS Emergency LUCINA CROWLEY DO Via [facility] ER FS HEADACHE [id number] 01/27/2019 19:45:00 01/27/2019 21:20:00 DIS Emergency BRADLEY COOK DO [facility] ER FS HEADACHE [id number] 01/17/2019 16:40:00 01/17/2019 17:20:00 DIS Emergency BRADLEY COOK DO [facility] ER FS MIGRAINE, NAUSEA [id number] 12/22/2018 19:08:00 12/22/2018 20:29:00 DIS Emergency LIZET BAUMANN DO [facility] ER FS MIGRAINE, NAUSEA, VOMITING [id number] 12/05/2018 18:51:00 12/05/2018 20:15:00 DIS Emergency LIZET BAUMANN DO [facility] ER FS MIGRAINE, NAUSEA, VOMITING
== END 2019-03-13 16:14 | disposition home or self-care (01) ==
LOC: EDUNIT# 15:04 → ER FS 15:06
DX: R51 Headache (principal); I10 Essential (primary) hypertension; F32.9 Major depressive disorder, single episode, unspecified; Z87.19 Personal history of other diseases of the digestive system; Z88.8 Allergy status to other drugs, medicaments and biological substances; Z86.69 Personal history of other diseases of the nervous system and sense organs; Z88.4 Allergy status to anesthetic agent; Z88.6 Allergy status to analgesic agent; Z90.13 Acquired absence of bilateral breasts and nipples; Z90.49 Acquired absence of other specified parts of digestive tract; Z98.51 Tubal ligation status
CPT/HCPCS: 99284

== ENCOUNTER 2019-04-09 17:04 | Emergency (ER) | payer MEDICARE, MEDICAID ==
[~2019-04-09] VITALS: Ht 172.7 cm; Wt 77.1 kg
--- NOTE | 2019-04-09 17:48 | ED General ---
General Stated Complaint: MIGRAINE History of Present Illness Date Seen by Provider: Apr 09, 2019 Time Seen by Provider: 17:48 Initial Comments Patient presents emergency department for evaluation of her typical migraine headaches that she says has been going on for 4 days as they're frontal pounding associated with nausea and photophobia and phonophobia but no fevers chills neck stiffness unilateral weakness numbness tingling or other neurologic changes. She typically gets 50 mg of Phenergan 50 mg of fentanyl both intramuscularly and she is able to go home. She says these are her typical migraine headaches with no different features pain. She says she is scheduled for Botox in 2 weeks. She is in no obvious distress with normal vital signs. Allergies and Home Medications Allergies Coded Allergies: butorphanol (Verified Allergy, Unknown, 01/27/19) diphenhydramine (Verified Allergy, Unknown, 01/27/19) hydroxyzine (Verified Allergy, Unknown, 01/27/19) ketorolac (Verified Allergy, Unknown, 01/27/19) nalbuphine (Verified Allergy, Unknown, 01/27/19) prednisone (Verified Allergy, Unknown, 01/27/19) succinylcholine (Verified Allergy, Unknown, 01/27/19) tramadol (Verified Allergy, Unknown, 01/27/19) Home Medications Docusate Sodium 100 Mg Capsule, 100 MG PO DAILY, (Reported) Ibuprofen 600 Mg Tablet, 600 MG PO Q6H PRN for PAIN-MILD, (Reported) Losartan Potassium 25 Mg Tablet, 25 MG PO DAILY, (Reported) Oxycodone HCl/Acetaminophen 1 Each Tablet, 1 TAB PO Q8H PRN for PAIN-MODERATE, (Reported) Promethazine HCl 25 Mg Tablet, 25 MG PO Q6H PRN for NAUSEA/VOMITING, (Reported) Patient Home Medication List Home Medication List Reviewed: Yes Review of Systems Review of Systems Constitutional: no symptoms reported Respiratory: no symptoms reported Cardiovascular: no symptoms reported Gastrointestinal: nausea; No vomiting Musculoskeletal: no symptoms reported Skin: no symptoms reported Psychiatric/Neurological: Headache All Other Systems Reviewed Negative Unless Noted: Yes Past Sbmskei-Yasagj-Nfdghi Hx Patient Social History 2nd Hand Smoke Exposure: No Recent Foreign Travel: No Contact w/Someone Who Travel: No Recent Hopitalizations: No Immunizations Up To Date Tetanus Booster (TDap): Unknown Seasonal Allergies Seasonal Allergies: No Past Medical History Surgeries: Yes (BILATERAL MASTECTOMY, BILAT BREAST AUGMENTATION) Appendectomy, Orthopedic, Tubal Ligation Respiratory: No Cardiac: Yes Hypertension Neurological: Yes 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 oz. 79.041136wu; BMI Method:Stated General Appearance: No Apparent Distress, WD/WN Eyes: Bilateral Eye Normal Inspection HEENT: TMs Normal Neck: Full Range of Motion, Normal Inspection Respiratory: No Respiratory Distress Cardiovascular: Regular Rate, Rhythm Neurologic/Psychiatric: Alert, Oriented x3, No Motor/Sensory Deficits, Normal Mood/Affect, ore trimmer II-XII Norm as Tested Skin: Normal Color, Warm/Dry Progress/Results/Core Measures Suspected Sepsis SIRS Temperature: Pulse: Respiratory Rate: Blood Pressure / Mean: Results/Orders My Orders Orders - BRADLEY COOK DO Fentanyl Injection (Sublimaze Injection (04/09/19 18:00) Promethazine Injection (Phenergan Injec (04/09/19 18:00) Medications Given in ED Current Medications Medications Dose Ordered Sig/Ronaldo Route Start Time Stop Time Status Last Admin Dose Admin Fentanyl Citrate 50 mcg ONCE ONCE IM 04/09/19 18:00 04/09/19 18:01 DC 04/09/19 18:08 50 MCG Promethazine HCl 50 mg ONCE ONCE IM 04/09/19 18:00 04/09/19 18:01 DC 04/09/19 18:09 50 MG Vital Signs/I&O Capillary Refill : Progress Note : Progress Note Patient with her typical migraine headaches with no red flag signs or symptoms of staying further workup imaging or transfer. She was given her typical migraine cocktail here and will be discharged in stable condition told to follow with her primary care provider and neurologist and come back to the ED sooner with worsening pain fevers vomiting vaginal concerns. Patient aware and agreeable with plan and verbalized understanding of the above instructions. Departure Impression Primary Impression: Migraine Qualified Codes: G43.109 - Migraine with aura, not intractable, without status migrainosus Disposition: HOME, SELF-CARE Condition: Stable Departure-Patient Inst. Referrals: ANNETTE OBRIEN MD (PCP/Family) Primary Care Physician Patient Instructions: Migraine Headache (DC) BRADLEY COOK DO Apr 09, 2019 17:48
[2019-04-09] MEDS ORDERED: PROMETHAZINE INJ 25 MG/ML (PHENERGAN) AMP IM ONE ×2 (18:00)
[2019-04-09] MEDS ORDERED: fentaNYL INJECTION 100 MCG/2 ML AMP IM ONE (18:00)
[2019-04-09 18:51] VITALS: BP 129/89
--- OUTSIDE RECORDS SUMMARY | 2019-04-10 02:01 | XMS REPORT | Continuity of Care Document ---
Author Organization Unknown Address Unknown Allergies Active Description Code Type Severity Reaction Onset Reported/Identified Relationship to Patient Clinical Status Yes butorphanol [id number] Drug Allergy Unknown N/A 01/27/2019 Yes diphenhydramine [id number] Drug Allergy Unknown N/A 01/27/2019 Yes hydroxyzine [id number] Drug Allergy Unknown N/A 01/27/2019 Yes ketorolac [id number] Drug Allergy Unknown N/A 01/27/2019 Yes nalbuphine [id number] Drug Allergy Unknown N/A 01/27/2019 Yes prednisone [id number] Drug Allergy Unknown N/A 01/27/2019 Yes succinylcholine [id number] Drug Allergy Unknown N/A 01/27/2019 Yes tramadol [id number] Drug Allergy Unknown N/A 01/27/2019 Medications There [...] STATUS TO OTH DRUG/MEDS/BIOL SUB 12/22/2018 LIZET BUAMANN DO Ot G43.909 MIGRAINE, UNSP, NOT INTRACTABLE, [...] MIGRAINE, UNSP, NOT INTRACTABLE, WITHOUT 01/19/2019 BRADLEY COOK DO Ot I10 ESSENTIAL (PRIMARY) HYPERTENSION 01/19/2019 [...] ALLERGY STATUS TO ANALGESIC AGENT STATUS 01/30/2019 JOEY BRADLEY Ot Z88.8 ALLERGY STATUS TO OTH DRUG/MEDS/BIOL SUB 01/30/2019 JOEY BRADLEY Ot Z90.13 ACQUIRED ABSENCE OF BILATERAL BREASTS AN 01/30/2019 JOEY AMBROSIOBRADLEY Ot Z90.49 ACQUIRED ABSENCE OF OTHER SPECIFIED PART 01/30/2019 BRADLEY COOK DO Ot Z98.51 TUBAL LIGATION STATUS 02/16/2019 LUCINA CROWLEY DO Ot F11.20 OPIOID DEPENDENCE, UNCOMPLICATED 02/16/2019 LUCINA CROWLEY DO Ot F32.9 MAJOR DEPRESSIVE DISORDER, SINGLE EPISOD 02/16/2019 LUCINA CROWLEY DO Ot G43.909 MIGRAINE, UNSP, NOT INTRACTABLE, WITHOUT 02/16/2019 LUCINA CROWLEY DO Ot I10 ESSENTIAL (PRIMARY) HYPERTENSION 02/16/2019 LUCINA CROWLEY DO Ot Z88.4 ALLERGY STATUS TO ANESTHETIC AGENT STATU 02/16/2019 LUCINA CROWLEY DO Ot Z88.6 ALLERGY STATUS TO ANALGESIC AGENT STATUS 02/16/2019 LUCINA CROWLEY DO Ot Z88.8 ALLERGY STATUS TO OTH DRUG/MEDS/BIOL SUB 02/16/2019 LUCINA CROWLEY DO Ot Z90.13 ACQUIRED ABSENCE OF BILATERAL BREASTS AN 02/16/2019 LUCINA CROWLEY DO Ot Z90.49 ACQUIRED ABSENCE OF OTHER SPECIFIED PART 02/16/2019 LUCINA CROWLEY DO Ot Z98.51 TUBAL LIGATION STATUS 03/13/2019 LEANDRO COOPER MD Ot F32.9 MAJOR DEPRESSIVE DISORDER, SINGLE EPISOD 03/13/2019 LEANDRO COOPER MD Ot G43.909 MIGRAINE, UNSP, NOT INTRACTABLE, WITHOUT 03/13/2019 LEANDRO COOPER MD, Ot I10 ESSENTIAL (PRIMARY) HYPERTENSION 03/13/2019 LEANDRO COOPER MD Ot R51 HEADACHE 03/13/2019 LEANDRO COOPER MD, Ot Z86.69 PERSONAL HISTORY OF DIS OF THE NERVOUS S 03/13/2019 LEANDRO COOPER MD, Ot Z87.19 PERSONAL HISTORY OF OTHER DISEASES OF TH 03/13/2019 LEANDRO COOPER MD, Ot Z88.4 ALLERGY STATUS TO ANESTHETIC AGENT STATU 03/13/2019 LEANDRO COOPER MD, Ot Z88.6 ALLERGY STATUS TO ANALGESIC AGENT STATUS 03/13/2019 LEANDRO COOPER MD, Ot Z88.8 ALLERGY STATUS TO OTH DRUG/MEDS/BIOL SUB 03/13/2019 LEANDRO COOPER MD, Ot Z90.13 ACQUIRED ABSENCE OF BILATERAL BREASTS AN 03/13/2019 LEANDRO COOPER MD, Ot Z90.49 ACQUIRED ABSENCE OF OTHER SPECIFIED PART 03/13/2019 LEANDRO COOPER MD, Ot Z98.51 TUBAL LIGATION STATUS Procedures There is no data. Results There is no data. Encounters ACCT No. Visit Date/Time Discharge Status Pt. Type Provider Facility Loc./Unit Complaint [id number] 04/09/2019 17:05:00 04/09/2019 18:51:00 DIS Emergency BRADLEY COOK DO [facility] ER FS MIGRAINE [id number] 03/13/2019 15:06:00 03/13/2019 16:14:00 DIS Emergency LEANDRO COOPER MD [facility] ER FS MIGRAINE [id number] 02/16/2019 10:29:00 02/16/2019 11:17:00 DIS Emergency LUCINA CROWLEY DO [facility] ER FS HEADACHE [id number] 01/27/2019 19:45:00 01/27/2019 21:20:00 DIS Emergency BRADLEY COOK DO [facility] ER FS HEADACHE [id number] 01/17/2019 16:40:00 01/17/2019 17:20:00 DIS Emergency BRADLEY COOK DO [facility] ER FS MIGRAINE, NAUSEA [id number] 12/22/2018 19:08:00 12/22/2018 20:29:00 DIS Emergency LIZET BAUMANN DO T [facility] ER FS MIGRAINE, NAUSEA, VOMITING [id number] 12/05/2018 18:51:00 12/05/2018 20:15:00 DIS Emergency LIZET BAUMANN DO T [facility] ER FS MIGRAINE, NAUSEA, VOMITING
== END 2019-04-09 18:51 | disposition home or self-care (01) ==
LOC: EDUNIT# 17:04 → ER FS 17:05
DX: G43.909 Migraine, unspecified, not intractable, without status migrainosus (principal); I10 Essential (primary) hypertension; F32.9 Major depressive disorder, single episode, unspecified; Z90.49 Acquired absence of other specified parts of digestive tract; Z98.51 Tubal ligation status; Z88.5 Allergy status to narcotic agent; Z88.8 Allergy status to other drugs, medicaments and biological substances; Z88.6 Allergy status to analgesic agent
CPT/HCPCS: 99284

== ENCOUNTER 2019-04-18 19:46 | Emergency (ER) | payer MEDICARE, MEDICAID ==
[~2019-04-18] VITALS: Ht 170.2 cm; Wt 79.4 kg
--- OUTSIDE RECORDS SUMMARY | 2019-04-18 19:52 | XMS REPORT | Continuity of Care Document ---
Author Organization Unknown Address Unknown Allergies Active Description Code Type Severity Reaction Onset Reported/Identified Relationship to Patient Clinical Status Yes butorphanol [id number] Drug Allergy Unknown N/A 01/27/2019 Yes diphenhydramine [id number] Drug Allergy Unknown N/A 01/27/2019 Yes hydroxyzine [id number] Drug Allergy Unknown N/A 01/27/2019 Yes ketorolac [id number] Drug Allergy Unknown N/A 01/27/2019 Yes nalbuphine [id number] Drug Allergy Unknown N/A 01/27/2019 Yes prednisone [id number] Drug Allergy Unknown N/A 01/27/2019 Yes succinylcholine [id number] Drug Allergy Unknown N/A 01/27/2019 Yes tramadol [id number] Drug Allergy Unknown N/A 01/27/2019 Medications There is no data. Problems Date Dx Coded Attending Type Code Diagnosis Diagnosed By 12/05/2018 LIZET BAUMANN DO Ot G43.909 MIGRAINE, UNSP, NOT INTRACTABLE, WITHOUT 12/05/2018 LIZET BAUMANN DO Ot Z88.4 ALLERGY STATUS TO ANESTHETIC AGENT STATU 12/05/2018 LIZET BAUMANN DO Ot Z88.6 ALLERGY STATUS TO ANALGESIC AGENT STATUS 12/05/2018 LIZET BAUMANN DO Ot Z88.8 ALLERGY STATUS TO OTH DRUG/MEDS/BIOL SUB 12/07/2018 LIZET BAUMANN DO Ot G43.909 MIGRAINE, UNSP, NOT INTRACTABLE, WITHOUT 12/07/2018 LIZET BAUMANN DO Ot Z88.4 ALLERGY STATUS TO ANESTHETIC AGENT STATU 12/07/2018 LIZET BAUMANN DO T Ot Z88.6 ALLERGY STATUS TO ANALGESIC AGENT STATUS 12/07/2018 LIZET BAUMANN DO T Ot Z88.8 ALLERGY STATUS TO OTH DRUG/MEDS/BIOL SUB 12/22/2018 LIZET BAUMANN DO Ot G43.909 MIGRAINE, UNSP, NOT INTRACTABLE, WITHOUT 12/22/2018 PASTOR AMBROSIO LIZET T Ot R51 HEADACHE 12/22/2018 PASTOR AMBROSIO LIZET T Ot Z86.69 PERSONAL HISTORY OF [...] AMBROSIO LIZET T Ot R51 HEADACHE 12/25/2018 PASTOR AMBROSIO LIZET T Ot Z86.69 PERSONAL HISTORY OF [...] Z98.51 TUBAL LIGATION STATUS 01/27/2019 BRADLEY COOK DO, Ot F32.9 MAJOR DEPRESSIVE [...] Z98.51 TUBAL LIGATION STATUS 01/30/2019 BRADLEY COOK DO, Ot F32.9 MAJOR DEPRESSIVE [...] DEPRESSIVE DISORDER, SINGLE EPISOD 03/13/2019 LEANDRO COOPER MD, Ot G43.909 MIGRAINE, UNSP, NOT INTRACTABLE, WITHOUT [...] TO ANALGESIC AGENT STATUS 03/13/2019 LEANDRO COOPER MD Ot Z88.8 ALLERGY STATUS TO OTH DRUG/MEDS/BIOL SUB 03/13/2019 LEANDRO COOPER MD Ot Z90.13 ACQUIRED ABSENCE OF BILATERAL BREASTS AN 03/13/2019 LEANDRO COOPER MD Ot Z90.49 ACQUIRED ABSENCE OF OTHER SPECIFIED PART 03/13/2019 LEANDRO COOPER MD Ot Z98.51 TUBAL LIGATION STATUS 04/09/2019 BRADLEY COOK DO Ot F32.9 MAJOR DEPRESSIVE DISORDER, SINGLE EPISOD 04/09/2019 BRADLEY COOK DO Ot G43.909 MIGRAINE, UNSP, NOT INTRACTABLE, WITHOUT 04/09/2019 BRADLEY COOK DO Ot I10 ESSENTIAL (PRIMARY) HYPERTENSION 04/09/2019 BRADLEY COOK DO Ot Z88.5 ALLERGY STATUS TO NARCOTIC AGENT STATUS 04/09/2019 BRADLEY COOK DO Ot Z88.6 ALLERGY STATUS TO ANALGESIC AGENT STATUS 04/09/2019 BRADLEY COOK DO Ot Z88.8 ALLERGY STATUS TO OTH DRUG/MEDS/BIOL SUB 04/09/2019 BRADLEY COOK DO Ot Z90.49 ACQUIRED ABSENCE OF OTHER SPECIFIED PART 04/09/2019 BRADLEY COOK DO Ot Z98.51 TUBAL LIGATION STATUS 04/11/2019 BRADLEY COOK DO, Ot F32.9 MAJOR DEPRESSIVE DISORDER, SINGLE EPISOD 04/11/2019 BRADLEY COOK DO Ot G43.909 MIGRAINE, UNSP, NOT INTRACTABLE, WITHOUT 04/11/2019 BRADLEY COOK DO Ot I10 ESSENTIAL (PRIMARY) HYPERTENSION 04/11/2019 BRADLEY COOK DO Ot Z88.5 ALLERGY STATUS TO NARCOTIC AGENT STATUS 04/11/2019 BRADLEY COOK DO Ot Z88.6 ALLERGY STATUS TO ANALGESIC AGENT STATUS 04/11/2019 BRADLEY COOK DO Ot Z88.8 ALLERGY STATUS TO OTH DRUG/MEDS/BIOL SUB 04/11/2019 BRADLEY COOK DO Ot Z90.49 ACQUIRED ABSENCE OF OTHER SPECIFIED PART 04/11/2019 BRADLEY COOK DO Ot Z98.51 TUBAL LIGATION STATUS Procedures There is no data. Results There is no data. Encounters ACCT No. Visit Date/Time Discharge Status Pt. Type Provider Facility Loc./Unit Complaint [id number] 04/09/2019 17:05:00 04/09/2019 18:51:00 DIS Emergency BRADLEY COOK DO Via [facility] ER FS MIGRAINE [id number] 03/13/2019 15:06:00 03/13/2019 16:14:00 DIS Emergency LEANDRO COOPER MD [facility] ER FS MIGRAINE [id number] 02/16/2019 10:29:00 02/16/2019 11:17:00 DIS Emergency LUCINA CROWLEY DO [facility] ER FS HEADACHE [id number] 01/27/2019 19:45:00 01/27/2019 21:20:00 DIS Emergency BRADLEY COOK DO [facility] ER FS HEADACHE [id number] 01/17/2019 16:40:00 01/17/2019 17:20:00 DIS Emergency BRADLEY COOK DO [facility] ER FS MIGRAINE, NAUSEA [id number] 12/22/2018 19:08:00 12/22/2018 20:29:00 DIS Emergency PASTOR AMBROSIO LIZET T [facility] ER FS MIGRAINE, NAUSEA, VOMITING [id number] 12/05/2018 18:51:00 12/05/2018 20:15:00 DIS Emergency PASTOR AMBROSIO, LIZET T [facility] ER FS MIGRAINE, NAUSEA, VOMITING [id number] 04/18/2019 19:48:00 ACT Emergency MEGAN BEDOYA DO [facility] ER FS MIGRAINE
[2019-04-18] MEDS ORDERED: DEXAMETHASONE 4 MG TAB (DECADRON) PO SCH (23:30)
[2019-04-18] MEDS ORDERED: PROMETHAZINE INJ 25 MG/ML (PHENERGAN) AMP IM ONE (23:30)
[2019-04-18] MEDS ORDERED: METOCLOPRAMIDE 10 MG (REGLAN) TAB PO ONE (23:30)
[2019-04-18] MEDS ORDERED: DEXAMETHASONE 1 MG/ML 5 ML UDC (DECADRON) ORAL SOLUTION PO STA (23:34)
--- NOTE | 2019-04-18 23:37 | ED Headache ---
General Chief Complaint: Head/Cervical Problems Stated Complaint: MIGRAINE Nursing Triage Note: pt with lindo since tuesday, states started throwing up today. pt with frequent migraines Nursing Sepsis Screen: No Definite Risk Source: patient History of Present Illness Date Seen by Provider: Apr 18, 2019 Time Seen by Provider: 23:00 Initial Comments Patient is a 59-year-old chronic migraine sufferer well-known to this emergency department. Current headache is typical in location, pain level and duration and started over forehead region. Patient reports persistent ache and nausea decided D.H.E., Zofran and Zomig. Patient states she is scheduled to see her neurologist later this month for Botox injections . Timing/Duration: 24 hours Severity/Quality: moderate Location: frontal Prior Headaches/Recent Trauma: no recent headache/trauma, chronic headaches Modifying Factors: improves with exposure to light Associated Symptoms: nausea/vomiting Allergies and Home Medications Allergies Coded Allergies: butorphanol (Verified Allergy, Unknown, 01/27/19) diphenhydramine (Verified Allergy, Unknown, 01/27/19) hydroxyzine (Verified Allergy, Unknown, 01/27/19) ketorolac (Verified Allergy, Unknown, 01/27/19) nalbuphine (Verified Allergy, Unknown, 01/27/19) paroxetine (Verified Allergy, Unknown, 04/18/19) prednisone (Verified Allergy, Unknown, 01/27/19) succinylcholine (Verified Allergy, Unknown, 01/27/19) tramadol (Verified Allergy, Unknown, 01/27/19) Home Medications Docusate Sodium 100 Mg Capsule, 100 MG PO DAILY, (Reported) Ibuprofen 600 Mg Tablet, 600 MG PO Q6H PRN for PAIN-MILD, (Reported) Losartan Potassium 25 Mg Tablet, 25 MG PO DAILY, (Reported) Oxycodone HCl/Acetaminophen 1 Each Tablet, 1 TAB PO Q8H PRN for PAIN-MODERATE, ( Reported) Promethazine HCl 25 Mg Tablet, 25 MG PO Q6H PRN for NAUSEA/VOMITING, (Reported) Patient Home Medication List Home Medication List Reviewed: Yes Review of Systems Review of Systems Constitutional: no symptoms reported Eyes: Photophobia Ears, Nose, Mouth, Throat: no symptoms reported Cardiovascular: no symptoms reported Gastrointestinal: no symptoms reported Genitourinary: no symptoms reported Musculoskeletal: no symptoms reported Skin: no symptoms reported Psychiatric/Neurological: No Symptoms Reported, Anxiety, Headache Past Ikoxsoy-Egyxcg-Bitndw Hx Patient Social History Alcohol Use: Denies Use Recreational Drug Use: No 2nd Hand Smoke Exposure: No Recent Foreign Travel: No Contact w/Someone Who Travel: No Recent Infectious Disease Expo: No Recent Hopitalizations: No Physical Abuse: No Sexual Abuse: No Fear: No Immunizations Up To Date Tetanus Booster (TDap): Unknown Seasonal Allergies Seasonal Allergies: No Past Medical History Surgeries: Yes (BILATERAL MASTECTOMY, BILAT BREAST AUGMENTATION) Appendectomy, Orthopedic, Tubal Ligation Respiratory: No Cardiac: Yes Hypertension Neurological: Yes 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 oz. 79.652279pb; BMI Method:Stated General Appearance: WD/WN HEENT: PERRL/EOMI, normal ENT inspection Neck: full range of motion, supple Cardiovascular: normal peripheral pulses, regular rate, rhythm Respiratory: lungs clear, normal breath sounds Back: no CVA tenderness Extremities: normal range of motion, normal inspection Psychiatric: alert, oriented x 3 Crainal Nerves: normal speech, PERRL Coordination/Gait: normal gait Motor/Sensory: no motor deficit, no sensory deficit Skin: normal color, warm/dry Progress/Results/Core Measures Results/Orders My Orders Orders - MEGAN BEDOYA DO Promethazine Injection (Phenergan Injec (04/18/19 23:30) Metoclopramide Tablet (Reglan Tablet) (04/18/19 23:30) Dexamethasone Tablet (Decadron Tablet) (04/18/19 23:30) Vital Signs/I&O 04/18/19 21:30 Temp 98.0 Pulse 90 Resp 18 B/P (MAP) 119/45 (69) Pulse Ox 98 O2 Delivery Room Air Blood Pressure Mean: 69 Departure Communication (Admissions) Chronic recurrent migraines without neurologic deficit. Patient requesting typical migraine type cocktail in attempt sleep. Phenergan, decadron and reglan with instructions to follow up with PCP and neurologist instructions Impression Primary Impression: Migraine Disposition: 01 HOME, SELF-CARE Condition: Improved Departure-Patient Inst. Referrals: ANNETTE OBRIEN MD (PCP/Family) Primary Care Physician Patient Instructions: Migraine Headache (DC) Add. Discharge Instructions: Please go home and rest and follow-up with your PCP and neurologist. All discharge instructions reviewed with patient and/or family. Voiced understanding. MEGAN BEDOYA DO Apr 18, 2019 23:37
[2019-04-18] MEDS ORDERED: METOCLOPRAMIDE INJ 10 MG/2 ML (REGLAN) IM ONE (23:45)
[2019-04-18 23:50] VITALS: BP 142/84
== END 2019-04-18 23:50 | disposition home or self-care (01) ==
LOC: EDUNIT# 19:46 → ER FS 19:48
DX: G43.909 Migraine, unspecified, not intractable, without status migrainosus (principal); I10 Essential (primary) hypertension; F32.9 Major depressive disorder, single episode, unspecified; Z88.5 Allergy status to narcotic agent; Z88.6 Allergy status to analgesic agent; Z88.8 Allergy status to other drugs, medicaments and biological substances; Z98.51 Tubal ligation status; Z90.49 Acquired absence of other specified parts of digestive tract; Z90.13 Acquired absence of bilateral breasts and nipples
CPT/HCPCS: 96372; 99284

== ENCOUNTER 2019-08-03 11:30 | Emergency (ER) | payer MEDICARE, MEDICAID ==
[~2019-08-03] VITALS: Ht 172 cm; Wt 79.4 kg
[~2019-08-03 11:30] MED LIST changes: +PROG100C11 PO; -PROG100C6 PO
[2019-08-03] MEDS ORDERED: PROCHLORPERAZINE 10 MG/2ML INJ (COMPAZINE) IV ONE (12:00)
[2019-08-03] MEDS ORDERED: NS IV 1000 ML 1,000 ML IV SCH (12:00)
[2019-08-03] MEDS ORDERED: METOCLOPRAMIDE INJ 10 MG/2 ML (REGLAN) IVP ONE (12:00)
--- NOTE | 2019-08-03 12:12 | NUR ---
ATTEMPTED AN IV TIMES 2 WITHOUT LUCK DUE TO KNOWN POOR VENOUS ACCESS. PT HAS REQUESTED IM INJECTIONS.
[2019-08-03] MEDS ORDERED: HALOPERIDOL 5 MG/ML (HALDOL) AMP IM ONE (12:15)
[2019-08-03 13:06] VITALS: BP 112/72
--- NOTE | 2019-08-03 13:06 | ED General ---
General Chief Complaint: Head/Cervical Problems Stated Complaint: HEADACHE Nursing Triage Note: PT HAS A HEADACHE, CHRONIC THIS ONE SINCE LAST TUESDAY. SHE REPORTS HER BOTOX INJECTIONS FOR HEADACHES IS DUE IN 3 WEEKS. NAUSEATED. Nursing Sepsis Screen: No Definite Risk Source of Information: Caregiver History of Present Illness Date Seen by Provider: Aug 03, 2019 Time Seen by Provider: 12:00 Initial Comments Patient is a 59-year-old female with history of chronic recurrent migraines currently on Botox and daily Topamax presents with persistent typical left retr o-orbital migraine headache with nausea and vomiting for the past several days. Patient is taking Zofran and home medications without improvement. States she feels a combination of weather and increased home life stress or current triggers for current migraine. No other acute symptoms or complaints. Timing/Duration: 1-2 Days Severity: Moderate Associated Systoms: Headaches, Nausea/Vomiting Allergies and Home Medications Allergies Coded Allergies: butorphanol (Verified Allergy, Unknown, 01/27/19) diphenhydramine (Verified Allergy, Unknown, 01/27/19) hydroxyzine (Verified Allergy, Unknown, 01/27/19) ketorolac (Verified Allergy, Unknown, 01/27/19) nalbuphine (Verified Allergy, Unknown, 01/27/19) paroxetine (Verified Allergy, Unknown, 04/18/19) prednisone (Verified Allergy, Unknown, 01/27/19) succinylcholine (Verified Allergy, Unknown, 01/27/19) tramadol (Verified Allergy, Unknown, 01/27/19) Home Medications Docusate Sodium 100 Mg Capsule, 100 MG PO DAILY, (Reported) Ibuprofen 600 Mg Tablet, 600 MG PO Q6H PRN for PAIN-MILD, (Reported) Losartan Potassium 25 Mg Tablet, 25 MG PO DAILY, (Reported) Oxycodone HCl/Acetaminophen 1 Each Tablet, 1 TAB PO Q8H PRN for PAIN-MODERATE, (Reported) Promethazine HCl 25 Mg Tablet, 25 MG PO Q6H PRN for NAUSEA/VOMITING, (Reported) Patient Home Medication List Home Medication List Reviewed: Yes Review of Systems Review of Systems Constitutional: see HPI EENTM: see HPI Respiratory: see HPI Cardiovascular: see HPI Gastrointestinal: see HPI Genitourinary: see HPI Musculoskeletal: see HPI Skin: see HPI Psychiatric/Neurological: See HPI Hematologic/Lymphatic: See HPI All Other Systems Reviewed Negative Unless Noted: Yes Past Idkyxnw-Hcikfh-Orpiqu Hx Past Med/Social Hx: Reviewed Nursing Past Med/Soc Hx Patient Social History Alcohol Use: Denies Use Recreational Drug Use: No 2nd Hand Smoke Exposure: No Recent Foreign Travel: No Contact w/Someone Who Travel: No Recent Infectious Disease Expo: No Recent Hopitalizations: No Physical Abuse: No Sexual Abuse: No Mistreated: No Fear: No Immunizations Up To Date Tetanus Booster (TDap): Unknown Seasonal Allergies Seasonal Allergies: No Past Medical History Surgeries: Yes (BILATERAL MASTECTOMY, BILAT BREAST AUGMENTATION) Appendectomy, Orthopedic, Tubal Ligation Respiratory: No Cardiac: Yes Hypertension Neurological: Yes 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 oz. 79.337268uh; 26.00 BMI Method:Stated General Appearance: No Apparent Distress Eyes: Bilateral Eye Normal Inspection, Bilateral Eye PERRL, Bilateral Eye EOMI HEENT: PERRL/EOMI, TMs Normal, Normal ENT Inspection, Pharynx Normal Neck: Full Range of Motion, Non Tender, Supple Respiratory: Chest Non Tender, Lungs Clear Neurologic/Psychiatric: Alert, Oriented x3, No Motor/Sensory Deficits, Normal Mood/Affect, rubber flap cutter II-XII Norm as Tested Progress/Results/Core Measures Suspected Sepsis Recent Fever Within 48 Hours: No Infection Criteria Present: None New/Unexplained Altered Menta: No Sepsis Screen: No Definite Risk SIRS Temperature: Pulse: 78 Respiratory Rate: 18 Blood Pressure 92 /75 Mean: 81 Results/Orders My Orders Orders - MEGAN BEDOYA DO Metoclopramide Injection (Reglan Injecti (08/03/19 12:00) Haloperidol Injection (Haldol Injectio (08/03/19 12:15) Medications Given in ED Current Medications Medications Dose Ordered Sig/Ronaldo Route Start Time Stop Time Status Last Admin Dose Admin Haloperidol Lactate 5 mg ONCE ONCE IM 08/03/19 12:15 08/03/19 12:16 DC 08/03/19 12:20 5 MG Vital Signs/I&O 08/03/19 11:47 Temp 36.5 Pulse 78 Resp 18 B/P (MAP) 92/75 (81) O2 Delivery Room Air Capillary Refill : Less Than 3 Seconds Blood Pressure Mean: 81 Departure Communication (Admissions) Symptoms significantly improved with treatment and rest. Recommendations are continued supportive care with PCP/neurology follow-up Impression Primary Impression: Chronic migraine Disposition: 01 HOME, SELF-CARE Condition: Improved Departure-Patient Inst. Patient Instructions: Migraine Headache (DC) Add. Discharge Instructions: Please go home and rest. Continue home medications and follow-up with your PCP and/or neurologist as scheduled. All discharge instructions reviewed with patient and/or family. Voiced understanding. MEGAN BEDOYA DO Aug 03, 2019 13:06
== END 2019-08-03 13:05 | disposition home or self-care (01) ==
LOC: ER FS 11:30 → EDUNIT# 11:30 → ER FS 13:05
DX: G43.709 Chronic migraine without aura, not intractable, without status migrainosus (principal); I10 Essential (primary) hypertension; F32.9 Major depressive disorder, single episode, unspecified; Z98.51 Tubal ligation status; Z88.8 Allergy status to other drugs, medicaments and biological substances; Z88.6 Allergy status to analgesic agent; Z88.5 Allergy status to narcotic agent; Z90.49 Acquired absence of other specified parts of digestive tract
CPT/HCPCS: 96372; 99284

== ENCOUNTER 2019-10-05 15:17 | Emergency (ER) | payer MEDICARE, MEDICAID ==
[~2019-10-05] VITALS: Ht 171 cm; Wt 78.7 kg
[2019-10-05] MEDS ORDERED: fentaNYL INJECTION 100 MCG/2 ML AMP IVP STA (16:10)
[2019-10-05] MEDS ORDERED: PROMETHAZINE INJ 25 MG/ML (PHENERGAN) AMP IM STA (16:10)
--- NOTE | 2019-10-05 16:15 | ED Headache ---
General Chief Complaint: Head/Cervical Problems Stated Complaint: MIGRAINE Nursing Triage Note: Had a mild headache that started on the , the headache turned into a migraine on the . Used nasal zomeg spray on the , DHE on the , and zomeg spray again today without relief of pain. Is rating head pain at 8/10. Nursing Sepsis Screen: No Definite Risk Source: patient Exam Limitations: no limitations (VIRGIL RAMOS,LENNIE STUDENT) History of Present Illness Date Seen by Provider: Oct 05, 2019 Time Seen by Provider: 16:02 Initial Comments Pt ambulates into ED with chief complaint of migraine headache that began 10/02/2019. States this migraine began when she woke up, was not preceded by an aura and has been stable and unaffected by her usual rescue medications of DHE, sumatriptan or zolmitriptan nasal spray. Describes pain as sharp, originating in her left buddhist and radiating posteriorly to occiput on left side of head. Associates her pain with nausea and has vomited once. Experiences approximately 15 headaches a month and some last up to four days. She believes this migraine is stable but is requesting fentanyl and phenergen, one of her regular rescues, today to break the cycle. Timing/Duration: 1 week, constant Severity/Quality: severe, sharp, stabbing Location: temporal, occipital, parietal Prior Headaches/Recent Trauma: frequent headaches, chronic headaches Modifying Factors: worse with exposure to light; improves with immobilization, improves with medication, improves with rest Associated Symptoms: No fatigue, No fever/chills; nausea/vomiting; No rash, No vision changes (VIRGIL RAMOS,MED STUDENT) Timing/Duration: 1 week, constant Severity/Quality: sharp, stabbing Location: temporal, occipital, parietal, other (headache originates on the left side behind the left eye and goes posterior from there.) Prior Headaches/Recent Trauma: chronic headaches Modifying Factors: worse with exposure to light; improves with medication Associated Symptoms: No fever/chills; nausea/vomiting; No stiff neck, No vision changes (TULIO CABA MD) Allergies and Home Medications Allergies Coded Allergies: butorphanol (Verified Allergy, Unknown, 01/27/19) diphenhydramine (Verified Allergy, Unknown, 01/27/19) hydroxyzine (Verified Allergy, Unknown, 01/27/19) ketorolac (Verified Allergy, Unknown, 01/27/19) nalbuphine (Verified Allergy, Unknown, 01/27/19) paroxetine (Verified Allergy, Unknown, 04/18/19) prednisone (Verified Allergy, Unknown, 01/27/19) succinylcholine (Verified Allergy, Unknown, 01/27/19) tramadol (Verified Allergy, Unknown, 01/27/19) Home Medications Docusate Sodium 100 Mg Capsule, 100 MG PO DAILY, (Reported) Ibuprofen 600 Mg Tablet, 600 MG PO Q6H PRN for PAIN-MILD, (Reported) Losartan Potassium 25 Mg Tablet, 25 MG PO DAILY, (Reported) Oxycodone HCl/Acetaminophen 1 Each Tablet, 1 TAB PO Q8H PRN for PAIN-MODERATE, (Reported) Promethazine HCl 25 Mg Tablet, 25 MG PO Q6H PRN for NAUSEA/VOMITING, (Reported) Patient Home Medication List Home Medication List Reviewed: Yes (VIRGIL RAMOS,MED STUDENT) Home Medication List Reviewed: Yes (TULIO CABA MD) Review of Systems Review of Systems Constitutional: No chills, No diaphoresis, No fever Eyes: Denies Decreased Acuity, Denies Pain Ears, Nose, Mouth, Throat: denies ear pain, denies nose pain Respiratory: No cough, No dyspnea on exertion Cardiovascular: No chest pain, No palpitations Gastrointestinal: No abdominal pain, No constipation, No diarrhea Genitourinary: No incontinence, No pain Musculoskeletal: No back pain, No joint pain Skin: No lesions, No lumps, No rash Psychiatric/Neurological: See HPI, Headache (VIRGIL RAMOS,MED STUDENT) Constitutional: see HPI Eyes: Denies Decreased Acuity; Photophobia Ears, Nose, Mouth, Throat: no symptoms reported Respiratory: no symptoms reported Cardiovascular: No chest pain, No palpitations Gastrointestinal: nausea, vomiting Genitourinary: no symptoms reported Musculoskeletal: no symptoms reported Psychiatric/Neurological: See HPI (TULIO CABA MD) Past Porreff-Ujlbhr-Ciyqrb Hx Past Med/Social Hx: Reviewed Nursing Past Med/Soc Hx (TULIO CABA MD) Patient Social History Alcohol Use: Denies Use Recreational Drug Use: No Smoking Status: Never a Smoker 2nd Hand Smoke Exposure: No Recent Foreign Travel: No Contact w/Someone Who Travel: No Recent Infectious Disease Expo: No Recent Hopitalizations: No Physical Abuse: No Sexual Abuse: No Mistreated: No Fear: No (VIRGIL RAMOS MED STUDENT) Immunizations Up To Date Tetanus Booster (TDap): Unknown (VIRGIL RAMOS MED STUDENT) Seasonal Allergies Seasonal Allergies: No (VIRGIL RAMOS MED STUDENT) Past Medical History Surgeries: Yes (BILATERAL MASTECTOMY, BILAT BREAST AUGMENTATION) Appendectomy, Orthopedic, Tubal Ligation Respiratory: No Cardiac: Yes Hypertension Neurological: Yes 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 Genitourinary: No Gastrointestinal: Yes (ESOPHAGEAL STRICTURE) Musculoskeletal: No Endocrine: No HEENT: No Cancer: No Psychosocial: Yes Depression Integumentary: No Blood Disorders: No Adverse Reaction/Blood Tranf: No (VIRGIL RAMOS MED STUDENT) Family Medical History Reviewed Nursing Family Hx (TULIO CABA MD) Migraines (mother, grandmother ) (VIRGIL RAMOS MED STUDENT) Physical Exam Vital Signs Vital Signs - First Documented 10/05/19 15:32 Temp 36.5 Pulse 92 Resp 16 B/P (MAP) 153/73 (99) Pulse Ox 98 (TULIO CABA MD) Vital Signs Capillary Refill : Less Than 3 Seconds (VIRGIL RAMOS MED STUDENT) Height, Weight, BMI Height: 5'7.00" Weight: 175lbs. oz. 79.168690ek; 26.00 BMI Method:Stated General Appearance: WD/WN, mild distress Cardiovascular: regular rate, rhythm, no edema, no gallop, no murmur Respiratory: chest non-tender, lungs clear, normal breath sounds, no accessory muscle use Gastrointestinal: non tender, soft Back: no CVA tenderness, no vertebral tenderness Extremities: no calf tenderness, normal capillary refill Psychiatric: alert, oriented x 3, depressed affect Crainal Nerves: normal hearing, normal speech Motor/Sensory: no motor deficit, no sensory deficit Skin: normal color, warm/dry (VIRGIL RAMOS MED STUDENT) General Appearance: WD/WN, mild distress Neck: full range of motion, supple Cardiovascular: regular rate, rhythm, no murmur Respiratory: lungs clear, normal breath sounds Gastrointestinal: non tender, soft Back: no CVA tenderness, no vertebral tenderness Psychiatric: alert, oriented x 3 Crainal Nerves: normal hearing, normal speech Coordination/Gait: normal gait Motor/Sensory: no motor deficit, no sensory deficit Skin: normal color, warm/dry (TULIO CABA MD) Progress/Results/Core Measures Results/Orders My Orders Orders - TULIO CABA MD Fentanyl Injection (Sublimaze Injection (10/05/19 16:10) Promethazine Injection (Phenergan Injec (10/05/19 16:10) (TULIO CABA MD) Vital Signs/I&O 10/05/19 15:32 Temp 36.5 Pulse 92 Resp 16 B/P (MAP) 153/73 (99) Pulse Ox 98 (TULIO CABA MD) Blood Pressure Mean: 99 Progress Progress Note : Time: 16:22 Progress Note Seen and evaluated. Will order 75mg fentanyl and 25 mg phenergen via IM route as requested by pt. (VIRGIL RAMOS,MED STUDENT) Progress Note : Progress Note Seen and evaluated the patient and agree with above except as indicated. I have directed the plan of care. Patient is here with typical migraine on the left side that has been going on for several days and is unrelenting. Weekly has to present to the ER for shots and then it breaks and then she does well for another month or so. She has been seen multiple times for the same and usually gets either Phenergan and fentanyl or other combinations including Haldol and Reglan to break the headache. Patient states the fentanyl and Phenergan usually works the best and gives her the greatest length of time for relief. Fentanyl 75 g IM and 25 mg of Phenergan IM ordered. Monitor patient. 1646:Improved overall and states ready to go home. Discharged home with return precautions. Patient verbalize understanding instructions and agreement with plan. (TULIO CABA MD) Departure Impression Primary Impression: Chronic migraine Disposition: 01 HOME, SELF-CARE Condition: Stable Departure-Patient Inst. Decision time for Depature: 16:45 (TULIO CABA MD) Referrals: ANNETTE OBIREN MD (PCP/Family) Primary Care Physician Patient Instructions: Migraine Headache (DC) Add. Discharge Instructions: All discharge instructions reviewed with patient and/or family. Voiced understanding. Continue home medication regimen as previously prescribed. Follow-up with your for recheck within the next several days as needed. Return for worse pain, fever, vomiting, weakness, breathing problems or other concerns as needed. VIRGIL RAMOS,MED STUDENT Oct 05, 2019 16:15 TULIO CABA MD Oct 05, 2019 16:44
[2019-10-05 16:57] VITALS: BP 142/72
== END 2019-10-05 16:57 | disposition home or self-care (01) ==
LOC: EDUNIT# 15:17 → ER FS 15:19
DX: G43.709 Chronic migraine without aura, not intractable, without status migrainosus (principal); I10 Essential (primary) hypertension; G43.909 Migraine, unspecified, not intractable, without status migrainosus; F32.9 Major depressive disorder, single episode, unspecified; G62.9 Polyneuropathy, unspecified; Z88.6 Allergy status to analgesic agent; Z88.5 Allergy status to narcotic agent; Z88.8 Allergy status to other drugs, medicaments and biological substances; Z90.49 Acquired absence of other specified parts of digestive tract; Z98.51 Tubal ligation status
CPT/HCPCS: 96372; 96374; 99284

== ENCOUNTER 2019-11-27 16:54 | Emergency (ER) | payer MEDICARE, MEDICAID ==
[~2019-11-27] VITALS: Ht 172.7 cm; Wt 81.2 kg
--- NOTE | 2019-11-27 17:04 | ED General ---
General Stated Complaint: MIGRIANE,NAUSEA History of Present Illness Date Seen by Provider: Nov 27, 2019 Time Seen by Provider: 16:59 Initial Comments Patient is from the [facility] and for some reason drove here today for her migraine headache. She says that her dad drove her here so she has a ride. She says she has been having migraine symptoms for the past several days including her pounding typical headaches with photophobia and nausea and dry heaves. She denies any vomiting fevers chills neck stiffness vision changes unilateral weakness numbness or tingling. She says this is her typical migraine headaches and there is nothing different about it. She says she usually gets 50 mg of Phenergan and 75 g of fentanyl intramuscularly and she goes home and sleep and feels better. She says she is behind on her Botox injections as what she attributes her headache to. She is in no obvious distress with normal vital signs. Allergies and Home Medications Allergies Coded Allergies: butorphanol (Verified Allergy, Unknown, 01/27/19) diphenhydramine (Verified Allergy, Unknown, 01/27/19) hydroxyzine (Verified Allergy, Unknown, 01/27/19) ketorolac (Verified Allergy, Unknown, 01/27/19) nalbuphine (Verified Allergy, Unknown, 01/27/19) paroxetine (Verified Allergy, Unknown, 04/18/19) prednisone (Verified Allergy, Unknown, 01/27/19) succinylcholine (Verified Allergy, Unknown, 01/27/19) tramadol (Verified Allergy, Unknown, 01/27/19) Home Medications Docusate Sodium 100 Mg Capsule, 100 MG PO DAILY, (Reported) Ibuprofen 600 Mg Tablet, 600 MG PO Q6H PRN for PAIN-MILD, (Reported) Losartan Potassium 25 Mg Tablet, 25 MG PO DAILY, (Reported) Oxycodone HCl/Acetaminophen 1 Each Tablet, 1 TAB PO Q8H PRN for PAIN-MODERATE, (Reported) Promethazine HCl 25 Mg Tablet, 25 MG PO Q6H PRN for NAUSEA/VOMITING, (Reported) Patient Home Medication List Home Medication List Reviewed: Yes Review of Systems Review of Systems Constitutional: no symptoms reported EENTM: no symptoms reported Respiratory: no symptoms reported Cardiovascular: no symptoms reported Gastrointestinal: nausea Genitourinary: no symptoms reported Musculoskeletal: no symptoms reported Skin: no symptoms reported Psychiatric/Neurological: Headache All Other Systems Reviewed Negative Unless Noted: Yes Past Stpzqey-Ufpnsh-Fodqwa Hx Patient Social History 2nd Hand Smoke Exposure: No Recent Foreign Travel: No Contact w/Someone Who Travel: No Recent Hopitalizations: No Immunizations Up To Date Tetanus Booster (TDap): Unknown Seasonal Allergies Seasonal Allergies: No Past Medical History Surgeries: Yes (BILATERAL MASTECTOMY, BILAT BREAST AUGMENTATION) Appendectomy, Orthopedic, Tubal Ligation Respiratory: No Cardiac: Yes Hypertension Neurological: Yes 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 oz. 79.891271fh; 26.00 BMI Method:Stated General Appearance: No Apparent Distress, WD/WN HEENT: PERRL/EOMI Neck: Supple Respiratory: No Respiratory Distress Cardiovascular: Regular Rate, Rhythm Extremity: Normal Capillary Refill Neurologic/Psychiatric: Alert, Oriented x3, No Motor/Sensory Deficits, Normal Mood/Affect Skin: Warm/Dry Progress/Results/Core Measures Suspected Sepsis SIRS Temperature: Pulse: Respiratory Rate: Blood Pressure / Mean: Results/Orders Vital Signs/I&O Capillary Refill : Progress Note : Progress Note Patient's with typical migraine headaches and she was given Phenergan and fentanyl and was observed and her pain improved with repeat normal neurologic exams she'll be discharged in stable condition told to follow with her neurologist for hopeful Botox injections and back to emergency department for worsening pain fevers vomiting or other general concerns. Departure Impression Primary Impression: Chronic migraine Disposition: 01 HOME, SELF-CARE Condition: Stable Departure-Patient Inst. Referrals: SELF,ANNETTE ESTRADA (PCP/Family) Primary Care Physician Patient Instructions: Migraine Headache (DC) BRADLEY COOK DO Nov 27, 2019 17:04
[2019-11-27] MEDS ORDERED: PROMETHAZINE INJ 25 MG/ML (PHENERGAN) AMP IM ONE (17:15)
[2019-11-27] MEDS ORDERED: fentaNYL INJECTION 100 MCG/2 ML AMP IM ONE (17:15)
[2019-11-27 17:20] VITALS: BP 121/70
== END 2019-11-27 17:20 | disposition home or self-care (01) ==
LOC: EDUNIT# 16:54 → ER FS 16:55
DX: G43.709 Chronic migraine without aura, not intractable, without status migrainosus (principal); I10 Essential (primary) hypertension; Z88.5 Allergy status to narcotic agent; Z88.8 Allergy status to other drugs, medicaments and biological substances; Z98.51 Tubal ligation status
CPT/HCPCS: 99284

== ENCOUNTER 2019-12-09 17:25 | Emergency (ER) | payer MEDICARE, MEDICAID ==
[~2019-12-09] VITALS: Ht 172.7 cm; Wt 82.2 kg
--- NOTE | 2019-12-09 19:06 | ED Neurological Problem ---
General Stated Complaint: HEADACHE Source: patient Exam Limitations: no limitations History of Present Illness Date Seen by Provider: Dec 09, 2019 Time Seen by Provider: 19:02 Initial Comments ` Patient complains of typical migraine headache left frontal area since Tuesday usual abortive and chronic medications of failed to relieve her of this at home she has a host of medications including Botox injections for her chronic migraines is typical of what she gets there is no unusual things that did not start differently it's not been more intense than normal nausea with it some photophobia or complaints sees a neurologist on a regular basis Allergies and Home Medications Allergies Coded Allergies: butorphanol (Verified Allergy, Unknown, 01/27/19) diphenhydramine (Verified Allergy, Unknown, 01/27/19) hydroxyzine (Verified Allergy, Unknown, 01/27/19) ketorolac (Verified Allergy, Unknown, 01/27/19) nalbuphine (Verified Allergy, Unknown, 01/27/19) paroxetine (Verified Allergy, Unknown, 04/18/19) prednisone (Verified Allergy, Unknown, 01/27/19) succinylcholine (Verified Allergy, Unknown, 01/27/19) tramadol (Verified Allergy, Unknown, 01/27/19) Home Medications Docusate Sodium 100 Mg Capsule, 100 MG PO DAILY, (Reported) Ibuprofen 600 Mg Tablet, 600 MG PO Q6H PRN for PAIN-MILD, (Reported) Losartan Potassium 25 Mg Tablet, 25 MG PO DAILY, (Reported) Oxycodone HCl/Acetaminophen 1 Each Tablet, 1 TAB PO Q8H PRN for PAIN-MODERATE, (Reported) Promethazine HCl 25 Mg Tablet, 25 MG PO Q6H PRN for NAUSEA/VOMITING, (Reported) Promethazine HCl 25 Mg Supp.rect, 25 MG RC 6 hours Prescribed by: THOMAS PETTY on 12/09/192043 Patient Home Medication List Home Medication List Reviewed: Yes Review of Systems Review of Systems Constitutional: no symptoms reported Eyes: Photophobia Ears, Nose, Mouth, Throat: no symptoms reported Respiratory: no symptoms reported Cardiovascular: no symptoms reported Gastrointestinal: nausea, vomiting Genitourinary: no symptoms reported Musculoskeletal: no symptoms reported Skin: no symptoms reported Psychiatric/Neurological: See HPI Endocrine: No Symptoms Reported Hematologic/Lymphatic: No Symptoms Reported Past Havysal-Gqtygm-Qilxor Hx Past Med/Social Hx: Reviewed Nursing Past Med/Soc Hx Patient Social History 2nd Hand Smoke Exposure: No Recent Hopitalizations: No Immunizations Up To Date Tetanus Booster (TDap): Unknown Seasonal Allergies Seasonal Allergies: No Past Medical History Surgeries: Yes (BILATERAL MASTECTOMY, BILAT BREAST AUGMENTATION) Appendectomy, Orthopedic, Tubal Ligation Respiratory: No Cardiac: Yes Hypertension Neurological: Yes 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 oz. 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, no motor/sensory deficits, a lert, normal mood/affect, oriented x 3; No abnormal gait Crainal Nerves: normal hearing, normal speech, PERRL; No abnormal eye position, No abnormal gag reflex, No abnormal pupil position, No abnormal speech, No facial asymmetry, No facial droop, No facial paresthesias, No gaze palsy, No tongue deviation to R, No tongue deviation to L Coordination/Gait: normal finger to nose, normal gait, negative Romberg's sign Skin: normal color, warm/dry Progress/Results/Core Measures Results/Orders My Orders Orders - THOMAS PETTY DO Ed Iv/Invasive Line Start (12/09/19 19:08) Prochlorperazine Injection (Compazine In (12/09/19 19:15) Benztropine Injection (Cogentin Injectio (12/09/19 19:15) Medications Given in ED Current Medications Medications Dose Ordered Sig/Ronaldo Route Start Time Stop Time Status Last Admin Dose Admin Benztropine Mesylate 2 mg ONCE ONCE IM 12/09/19 19:15 12/09/19 19:16 DC 12/09/19 19:20 2 MG Prochlorperazine Edisylate 10 mg ONCE ONCE IV 12/09/19 19:15 12/09/19 19:16 DC 12/09/19 19:20 10 MG Vital Signs/I&O 12/09/19 12/09/19 18:55 20:46 Temp 36.8 37.0 Pulse 81 76 Resp 14 16 B/P (MAP) 126/61 (82) 126/51 Pulse Ox 97 100 O2 Delivery Room Air Room Air Progress Progress Note : Progress Note Chronic migraine headaches differential is limited as no red flags plan will be reviewed the chart, was been effective medication was the past. The patient discharged home with urology follow-up. Departure Communication (Admissions) Patient's headache is better requesting to be discharged plan to give her Phenergan suppositories per her request follow-up with her neurologist as needed. Impression Primary Impression: Migraine Disposition: 01 HOME, SELF-CARE Condition: Stable Departure-Patient Inst. Referrals: SELF,ANNETTE ESTRADA (PCP/Family) Primary Care Physician Patient Instructions: Migraine Headache (DC) Scripts Promethazine HCl (Promethazine Suppository) 25 Mg Supp.rect 25 MG RC 6 hours for headache, #10 SUPP.RECT 0 Refills Prov: THOMAS PETTY DO 12/09/19 THOMAS PETTY DO Dec 09, 2019 19:06
[2019-12-09] MEDS ORDERED: PROCHLORPERAZINE 10 MG/2ML INJ (COMPAZINE) IV ONE (19:15)
[2019-12-09] MEDS ORDERED: BENZTROPINE 2 MG/2 ML INJ (COGENTIN) AMP IM ONE (19:15)
--- NOTE | 2019-12-09 19:17 | NUR ---
This RN went into the room to start IV to give ordered medications. Patient states that she is a hard IV stick and that she would rather have IM shots. This RN ask the doctor and he stated it was fine to give the medications IM.
[2019-12-09] MEDS ORDERED: PROM25SU44 RC (20:42)
[2019-12-09 20:46] VITALS: BP 126/51
== END 2019-12-09 20:46 | disposition home or self-care (01) ==
LOC: EDUNIT# 17:25 → ER FS 17:28
DX: G43.909 Migraine, unspecified, not intractable, without status migrainosus (principal); I10 Essential (primary) hypertension; Z88.5 Allergy status to narcotic agent; Z88.8 Allergy status to other drugs, medicaments and biological substances; Z88.6 Allergy status to analgesic agent
CPT/HCPCS: 96372; 99284

== ENCOUNTER 2019-12-22 13:15 | Emergency (ER) | payer MEDICARE, MEDICAID ==
[~2019-12-22] VITALS: Ht 172.7 cm; Wt 80.0 kg
[~2019-12-22 13:15] MED LIST changes: +PROM25SU44 RC
[2019-12-22] MEDS ORDERED: DEXAMETHASONE 10 MG/ML (DECADRON) 1 ML VIAL ONE (13:39)
[2019-12-22] MEDS ORDERED: METOCLOPRAMIDE INJ 10 MG/2 ML (REGLAN) ONE (13:39)
[2019-12-22] MEDS ORDERED: BENZTROPINE 2 MG/2 ML INJ (COGENTIN) AMP ONE (13:44)
--- NOTE | 2019-12-22 14:04 | ED Headache ---
General Chief Complaint: Head/Cervical Problems Stated Complaint: HEADACHE Source: patient Exam Limitations: no limitations History of Present Illness Date Seen by Provider: Dec 22, 2019 Time Seen by Provider: 13:25 Initial Comments 59-year-old female presents with a migraine. Patient has a history of recurrent migraines with numerous ER visits. Patient was last seen here on 12/09/19 with similar symptoms. Patient presents with a headache that has been present for 3 days. Patient reports that she is tried all of her typical home medicines. Please see nurse's note for complete list. Patient reports some photophobia, nausea vomiting. Patient reports that she is supposed to get Botox for her migraines and is behind on her injections. Patient has no fevers chills cough or other complaints. Allergies and Home Medications Allergies Coded Allergies: butorphanol (Verified Allergy, Unknown, 01/27/19) diphenhydramine (Verified Allergy, Unknown, 01/27/19) hydroxyzine (Verified Allergy, Unknown, 01/27/19) ketorolac (Verified Allergy, Unknown, 01/27/19) nalbuphine (Verified Allergy, Unknown, 01/27/19) paroxetine (Verified Allergy, Unknown, 04/18/19) prednisone (Verified Allergy, Unknown, 01/27/19) succinylcholine (Verified Allergy, Unknown, 01/27/19) tramadol (Verified Allergy, Unknown, 01/27/19) Home Medications Docusate Sodium 100 Mg Capsule, 100 MG PO DAILY, (Reported) Ibuprofen 600 Mg Tablet, 600 MG PO Q6H PRN for PAIN-MILD, (Reported) Losartan Potassium 25 Mg Tablet, 25 MG PO DAILY, (Reported) Oxycodone HCl/Acetaminophen 1 Each Tablet, 1 TAB PO Q8H PRN for PAIN-MODERATE, (Reported) Promethazine HCl 25 Mg Tablet, 25 MG PO Q6H PRN for NAUSEA/VOMITING, (Reported) Promethazine HCl 25 Mg Supp.rect, 25 MG RC 6 hours Prescribed by: THOMAS PETTY on 12/09/192043 Patient Home Medication List Home Medication List Reviewed: Yes Review of Systems Review of Systems Constitutional: No chills, No fever Eyes: Photophobia Ears, Nose, Mouth, Throat: no symptoms reported Respiratory: no symptoms reported Cardiovascular: no symptoms reported Gastrointestinal: nausea, vomiting Musculoskeletal: no symptoms reported Skin: no symptoms reported Psychiatric/Neurological: Headache Past Ivyffeu-Diiukk-Mccrut Hx Past Med/Social Hx: Reviewed Nursing Past Med/Soc Hx Patient Social History 2nd Hand Smoke Exposure: No Recent Hopitalizations: No Immunizations Up To Date Tetanus Booster (TDap): Unknown Seasonal Allergies Seasonal Allergies: No Past Medical History Surgeries: Yes (BILATERAL MASTECTOMY, BILAT BREAST AUGMENTATION) Appendectomy, Orthopedic, Tubal Ligation Respiratory: No Cardiac: Yes Hypertension 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 oz. 79.664457ns; 27.00 BMI Method:Stated General Appearance: mild distress HEENT: PERRL/EOMI Neck: supple, normal inspection Respiratory: lungs clear, normal breath sounds Gastrointestinal: non tender, soft Extremities: normal range of motion Psychiatric: alert, oriented x 3 Crainal Nerves: normal hearing, normal speech, PERRL Motor/Sensory: no motor deficit, no sensory deficit Skin: normal color, warm/dry Lymphatic: no adenopathy Progress/Results/Core Measures Progress Progress Note : Time: 14:01 Progress Note After chart review patient was given Cogentin, Reglan, and decadron. Since admis sukhdev on a work in the past. I discussed with patient and need for follow-up with her neurologist. That we will not be providing her any prescriptions. Patient will be discharged home in stable condition. Departure Impression Primary Impression: Chronic migraine Disposition: 01 HOME, SELF-CARE Condition: Stable Departure-Patient Inst. Referrals: SELF,ANNETTE ESTRADA (PCP/Family) Primary Care Physician Patient Instructions: Migraine Headache (DC) Add. Discharge Instructions: Follow-up with your neurologist as soon as possible or primary care provider for further medications and treatment Emergency department focuses on treating and ruling out life-threatening diseases. Whenever possible, a diagnosis is given. However, most patients are given an impression based on their history, physical exam, and workup during your brief time in the ER. Information about probable diagnosis and other educational material has been provided. Please take the time to read and un derstand this information. It is very important that you follow up with a physician as discussed during the visit today. Failure to adhere to your follow-up instructions may lead to severe disability, injury, or so please make sure to keep your appointments or obtain one as requested. Please keep in mind the emergency department is not designed to your primary care or "family doctor" and nonurgent issues are best evaluated by an outpatient physician All discharge instructions reviewed with patient and/or family. Voiced understanding. PATRICE LUJAN DO Dec 22, 2019 14:04
[2019-12-22] MEDS ORDERED: DEXAMETHASONE 10 MG/ML (DECADRON) 1 ML VIAL IM ONE (14:15)
[2019-12-22] MEDS ORDERED: METOCLOPRAMIDE INJ 10 MG/2 ML (REGLAN) IM ONE (14:15)
[2019-12-22] MEDS ORDERED: BENZTROPINE 2 MG/2 ML INJ (COGENTIN) AMP IM ONE (14:15)
[2019-12-22 14:35] VITALS: BP 131/74
--- OUTSIDE RECORDS SUMMARY | 2019-12-23 19:50 | XMS REPORT | Continuity of Care Document ---
Author Organization Unknown Address Unknown Phone Unavailable Allergies Active Description Code Type Severity Reaction Onset Reported/Identified Relationship to Patient Clinical Status Yes butorphanol [id number] Drug Aller gy Unknown N/A 01/27/2019 Yes diphenhydramine [id number] D rug Allergy Unknown N/A 01/27/2019 Yes hydroxyzine [id number] Drug Aller gy Unknown N/A 01/27/2019 Yes ketorolac [id number] Drug Allergy Unknown N/A 01/27/2019 Yes nalbuphine [id number] Drug Allerg y Unknown N/A 01/27/2019 Yes prednisone [id number] Drug Allerg y Unknown N/A 01/27/2019 Yes succinylcholine [id number] D rug Allergy Unknown N/A 01/27/2019 Yes tramadol [id number] Drug Allergy Unknown N/A 01/27/2019 Yes paroxetine [id number] Drug Allerg y Unknown N/A 04/18/2019 Medications There is no data. Problems Date Dx Coded Attending Type Code Diagnosis Diagnosed By 12/05/2018 LIZET BAUMANN DO Ot G43.909 MIGRAINE, UNSP, NOT INTRACTABLE, WITHOUT 12/05/2018 LIZET BAUMANN DO Ot Z88. 4 ALLERGY STATUS TO ANESTHETIC AGENT STATU 12/05/2018 LIZET BAUMANN DO T Ot Z88. 6 ALLERGY STATUS TO ANALGESIC AGENT STATUS 12/05/2018 LIZET BAUMANN DO T Ot Z88. 8 ALLERGY STATUS TO OTH DRUG/MEDS/BIOL SUB 12/07/2018 LIZET BAUMANN DO Ot G43.909 MIGRAINE, UNSP, NOT INTRACTABLE, WITHOUT 12/07/2018 LIZET BAUMANN DO T Ot Z88. 4 ALLERGY STATUS TO ANESTHETIC AGENT STATU 12/07/2018 LIZET BAUMANN DO Ot Z88. 6 ALLERGY STATUS TO ANALGESIC AGENT STATUS 12/07/2018 LIZET BAUMNAN DO Ot Z88. 8 ALLERGY STATUS TO OTH DRUG/MEDS/BIOL SUB 12/22/2018 PASTOR AMBROSIO, LIZET T Ot G43.909 MIGRAINE, UNSP, NOT INTRACTABLE, WITHOUT 12/22/2018 PASTOR AMBROSIO, LIZET T Ot R51 HEADACHE 12/22/2018 PASTOR AMBROSIO LIZET T Ot Z86. 69 PERSONAL HISTORY OF DIS OF THE NERVOUS S 12/22/2018 PASTOR AMBROSIOOCED T Ot Z88. 4 ALLERGY STATUS TO ANESTHETIC AGENT STATU 12/22/2018 LIZET BAUMANN DO T Ot Z88. 6 ALLERGY STATUS TO ANALGESIC AGENT STATUS 12/22/2018 PASTOR AMBROSIO LIZET T Ot Z88. 8 ALLERGY STATUS TO OTH DRUG/MEDS/BIOL SUB 12/25/2018 PASTOR AMBROSIO, LIZET T Ot G43.909 MIGRAINE, UNSP, NOT INTRACTABLE, WITHOUT 12/25/2018 PASTOR LIZET T Ot R51 HEADACHE 12/25/2018 PASTOR AMBROSIO LIZET T Ot Z86. 69 PERSONAL HISTORY OF DIS OF THE NERVOUS S 12/25/2018 LIZET BAUMANN DO T Ot Z88. 4 ALLERGY STATUS TO ANESTHETIC AGENT STATU 12/25/2018 LIZET BAUMANN DO T Ot Z88. 6 ALLERGY STATUS TO ANALGESIC AGENT STATUS 12/25/2018 LIZET BAUMANN DO T Ot Z88. 8 ALLERGY STATUS TO OTH DRUG/MEDS/BIOL SUB 01/17/2019 BRADLEY COOK DO, Ot F32 .9 MAJOR DEPRESSIVE DISORDER, SINGLE EPISOD 01/17/2019 BRADLEY COOK DO Ot G43.909 MIGRAINE, UNSP, NOT INTRACTABLE, WITHOUT 01/17/2019 BRADLEY COOK DO Ot I10 ESSENTIAL (PRIMARY) HYPERTENSION 01/17/2019 BRADLEY COOK DO Ot Z88 .4 ALLERGY STATUS TO ANESTHETIC AGENT STATU 01/17/2019 BRADLYE COOK DO Ot Z88 .6 ALLERGY STATUS TO ANALGESIC AGENT STATUS 01/17/2019 BRADLEY COOK DO Ot Z88 .8 ALLERGY STATUS TO OTH DRUG/MEDS/BIOL SUB 01/17/2019 BRADLEY COOK DO Ot Z90.13 ACQUIRED ABSENCE OF BILATERAL BREASTS AN 01/17/2019 BRADLEY COOK DO Ot Z90.49 ACQUIRED ABSENCE OF OTHER SPECIFIED PART 01/17/2019 BRADLEY COOK DO Ot Z98.51 TUBAL LIGATION STATUS 01/19/2019 BRADLEY COOK DO Ot F32 .9 MAJOR DEPRESSIVE DISORDER, SINGLE EPISOD 01/19/2019 BRADLEY COOK DO, Ot G43.909 MIGRAINE, UNSP, NOT INTRACTABLE, WITHOUT 01/19/2019 BRADLEY COOK DO Ot I10 ESSENTIAL (PRIMARY) HYPERTENSION 01/19/2019 BRADLEY COOK DO Ot Z88 .4 ALLERGY STATUS TO ANESTHETIC AGENT STATU 01/19/2019 BRADLEY COOK DO Ot Z88 .6 ALLERGY STATUS TO ANALGESIC AGENT STATUS 01/19/2019 BRADLEY COOK DO Ot Z88 .8 ALLERGY STATUS TO OTH DRUG/MEDS/BIOL SUB 01/19/2019 BRADLEY COOK DO Ot Z90.13 ACQUIRED ABSENCE OF BILATERAL BREASTS AN 01/19/2019 BRADLEY COOK DO Ot Z90.49 ACQUIRED ABSENCE OF OTHER SPECIFIED PART 01/19/2019 BRADLEY COOK DO Ot Z98.51 TUBAL LIGATION STATUS 01/27/2019 BRADLEY COOK DO Ot F32 .9 MAJOR DEPRESSIVE DISORDER, SINGLE EPISOD 01/27/2019 BRADLEY COOK DO Ot I10 ESSENTIAL (PRIMARY) HYPERTENSION 01/27/2019 BRADLEY COOK DO Ot R51 HEADACHE 01/27/2019 BRADLEY COOK DO Ot Z86.69 PERSONAL HISTORY OF DIS OF THE NERVOUS S 01/27/2019 BRADLEY COOK DO Ot Z88 .4 ALLERGY STATUS TO ANESTHETIC AGENT STATU 01/27/2019 BRADLEY COOK DO Ot Z88 .6 ALLERGY STATUS TO ANALGESIC AGENT STATUS 01/27/2019 BRADLEY COOK DO Ot Z88 .8 ALLERGY STATUS TO OTH DRUG/MEDS/BIOL SUB 01/27/2019 BRADLEY COOK DO Ot Z90.13 ACQUIRED ABSENCE OF BILATERAL BREASTS AN 01/27/2019 BRADLEY COOK DO Ot Z90.49 ACQUIRED ABSENCE OF OTHER SPECIFIED PART 01/27/2019 BRADLEY COOK DO Ot Z98.51 TUBAL LIGATION STATUS 01/30/2019 BRADLEY COOK DO, Ot F32 .9 MAJOR DEPRESSIVE DISORDER, SINGLE EPISOD 01/30/2019 BRADLEY COOK DO Ot I10 ESSENTIAL (PRIMARY) HYPERTENSION 01/30/2019 BRADLEY COOK DO Ot R51 HEADACHE 01/30/2019 BRADLEY COOK DO Ot Z86.69 PERSONAL HISTORY OF DIS OF THE NERVOUS S 01/30/2019 BRADLEY COOK DO Ot Z88 .4 ALLERGY STATUS TO ANESTHETIC AGENT STATU 01/30/2019 BRADLEY COOK DO Ot Z88 .6 ALLERGY STATUS TO ANALGESIC AGENT STATUS 01/30/2019 BRADLEY COOK DO Ot Z88 .8 ALLERGY STATUS TO OTH DRUG/MEDS/BIOL SUB 01/30/2019 [...] INTRACTABLE, WITHOUT 02/16/2019 LUCINA CROWLEY DO Ot I1 0 ESSENTIAL (PRIMARY) HYPERTENSION 02/16/2019 LUCINA CROWLEY DO [...] LIGATION STATUS 03/13/2019 LEANDRO COOPER MD Ot F32. 9 MAJOR DEPRESSIVE DISORDER, SINGLE EPISOD 03/13/2019 LEANDRO COOPER MD, Ot G43.909 MIGRAINE, UNSP, NOT INTRACTABLE, WITHOUT 03/13/2019 LEANDRO COOPER MD Ot I10 ESSENTIAL (PRIMARY) HYPERTENSION 03/13/2019 LEANDRO COOPER MD Ot R51 HEADACHE 03/13/2019 LEANDRO COOPER MD, Ot Z86. 69 PERSONAL HISTORY OF DIS OF THE NERVOUS S 03/13/2019 LEANDRO COOPER MD Ot Z87. 19 PERSONAL HISTORY OF OTHER DISEASES OF TH 03/13/2019 LEANDRO COOPER MD, Ot Z88. 4 ALLERGY STATUS TO ANESTHETIC AGENT STATU 03/13/2019 LEANDRO COOPER MD Ot Z88. 6 ALLERGY STATUS TO ANALGESIC AGENT STATUS 03/13/2019 LEANDRO COOPER MD Ot Z88. 8 ALLERGY STATUS TO OTH DRUG/MEDS/BIOL SUB 03/13/2019 LEANDRO COOPER MD Ot Z90. 13 ACQUIRED ABSENCE OF BILATERAL BREASTS AN 03/13/2019 LEANDRO COOPER MD Ot Z90. 49 ACQUIRED ABSENCE OF OTHER SPECIFIED PART 03/13/2019 LEANDRO COOPER MD Ot Z98. 51 TUBAL LIGATION STATUS 04/09/2019 BRADLEY COOK DO Ot F32 .9 MAJOR DEPRESSIVE DISORDER, SINGLE EPISOD 04/09/2019 BRADLEY COOK DO Ot G43.909 MIGRAINE, UNSP, NOT INTRACTABLE, WITHOUT 04/09/2019 BRADLEY COOK DO Ot I10 ESSENTIAL (PRIMARY) HYPERTENSION 04/09/2019 BRADLEY COOK DO Ot Z88 .5 ALLERGY STATUS TO NARCOTIC AGENT STATUS 04/09/2019 BRADLEY COOK DO Ot Z88 .6 ALLERGY STATUS TO ANALGESIC AGENT STATUS 04/09/2019 BRADLEY COOK DO Ot Z88 .8 ALLERGY STATUS TO OTH DRUG/MEDS/BIOL SUB 04/09/2019 BRADLEY COOK DO Ot Z90.49 ACQUIRED ABSENCE OF OTHER SPECIFIED PART 04/09/2019 BRADLEY COOK DO Ot Z98.51 TUBAL LIGATION STATUS 04/11/2019 BRADLEY COOK DO Ot F32 .9 MAJOR DEPRESSIVE DISORDER, SINGLE EPISOD 04/11/2019 BRADLEY COOK DO Ot G43.909 MIGRAINE, UNSP, NOT INTRACTABLE, WITHOUT 04/11/2019 BRADLEY COKO DO Ot I10 ESSENTIAL (PRIMARY) HYPERTENSION 04/11/2019 BRADLEY COOK DO Ot Z88 .5 ALLERGY STATUS TO NARCOTIC AGENT STATUS 04/11/2019 BRADLEY COOK DO Ot Z88 .6 ALLERGY STATUS TO ANALGESIC AGENT STATUS 04/11/2019 BRADLEY COOK DO Ot Z88 .8 ALLERGY STATUS TO OTH DRUG/MEDS/BIOL SUB 04/11/2019 BRADLEY COOK DO Ot Z90.49 ACQUIRED ABSENCE OF OTHER SPECIFIED PART 04/11/2019 BRADLEY COOK DO Ot Z98.51 TUBAL LIGATION STATUS 04/18/2019 BEDOYA DO, MEGAN Ot F32.9 MAJOR DEPRESSIVE DISORDER, SINGLE EPISOD 04/18/2019 BEDOYA DO, MEGAN Ot G43.909 MIGRAINE, UNSP, NOT INTRACTABLE, WITHOUT 04/18/2019 BEDOYA DO, MEGAN Ot I10 ESSENTIAL (PRIMARY) HYPERTENSION 04/18/2019 BEDOYA DO, MEGAN Ot R51 HEADACHE 04/18/2019 BEDOYA DO, MEGAN Ot Z88.5 ALLERGY STATUS TO NARCOTIC AGENT STATUS 04/18/2019 BEDOYA DO, MEGAN Ot Z88.6 ALLERGY STATUS TO ANALGESIC AGENT STATUS 04/18/2019 BEDOYA DO, MEGAN Ot Z88.8 ALLERGY STATUS TO OTH DRUG/MEDS/BIOL SUB 04/18/2019 BEDOYA DO, MEGAN Ot Z90.13 ACQUIRED ABSENCE OF BILATERAL BREASTS AN 04/18/2019 BEDOYA DO, MEGAN Ot Z90.49 ACQUIRED ABSENCE OF OTHER SPECIFIED PART 04/18/2019 BEDOYA DO, MEGAN Ot Z98.51 TUBAL LIGATION STATUS 04/24/2019 BEDOYA DO, MEGAN Ot F32.9 MAJOR DEPRESSIVE DISORDER, SINGLE EPISOD 04/24/2019 BEDOYA DO, MEGAN Ot G43.909 MIGRAINE, UNSP, NOT INTRACTABLE, WITHOUT 04/24/2019 BEDOYA DO, MEGAN Ot I10 ESSENTIAL (PRIMARY) HYPERTENSION 04/24/2019 BEDOYA DO, MEGAN Ot R51 HEADACHE 04/24/2019 BEDOYA DO, MEGAN Ot Z88.5 ALLERGY STATUS TO NARCOTIC AGENT STATUS 04/24/2019 BEDOYA DO, MEGAN Ot Z88.6 ALLERGY STATUS TO ANALGESIC AGENT STATUS 04/24/2019 BEDOYA DO, MEGAN Ot Z88.8 ALLERGY STATUS TO OTH DRUG/MEDS/BIOL SUB 04/24/2019 BEDOYA DO, MEGAN Ot Z90.13 ACQUIRED ABSENCE OF BILATERAL BREASTS AN 04/24/2019 BEDOYA DO, MEGAN Ot Z90.49 ACQUIRED ABSENCE OF OTHER SPECIFIED PART 04/24/2019 BEDOYA DO, MEGAN Ot Z98.51 TUBAL LIGATION STATUS 08/03/2019 BEDOYA DO, MEGAN Ot F32.9 MAJOR DEPRESSIVE DISORDER, SINGLE EPISOD 08/03/2019 BEDOYA DO, MEGAN Ot G43.709 CHRONIC MIGRAINE W/O AURA, NOT INTRACTAB 08/03/2019 BEDOYA DO, MEGAN Ot I10 ESSENTIAL (PRIMARY) HYPERTENSION 08/03/2019 BEDOYA DO, MEGAN Ot R51 HEADACHE 08/03/2019 BEDOYA DO, MEGAN Ot Z88.5 ALLERGY STATUS TO NARCOTIC AGENT STATUS 08/03/2019 BEDOYA DO, MEGAN Ot Z88.6 ALLERGY STATUS TO ANALGESIC AGENT STATUS 08/03/2019 AURELIANO AMBROSIO MEGAN Ot Z88.8 ALLERGY STATUS TO OTH DRUG/MEDS/BIOL SUB 08/03/2019 BEDOYA MEGAN Ot Z90.49 ACQUIRED ABSENCE OF OTHER SPECIFIED PART 08/03/2019 BEDOYA MEGAN Ot Z98.51 TUBAL LIGATION STATUS 10/05/2019 TULIO CABA MD Ot F32.9 MAJOR DEPRESSIVE DISORDER, SINGLE EPISOD 10/05/2019 TULIO CABA MD Ot G43.709 CHRONIC MIGRAINE W/O AURA, NOT INTRACTAB 10/05/2019 TULIO CABA MD Ot G43.909 MIGRAINE, UNSP, NOT INTRACTABLE, WITHOUT 10/05/2019 TULIO CABA MD Ot G62.9 POLYNEUROPATHY, UNSPECIFIED 10/05/2019 TULIO CABA MD Ot I10 ESSENTIAL (PRIMARY) HYPERTENSION 10/05/2019 TULIO CABA MD Ot R51 HEADACHE 10/05/2019 TULIO CABA MD Ot Z88.5 ALLERGY STATUS TO NARCOTIC AGENT STATUS 10/05/2019 TULIO CABA MD Ot Z88.6 ALLERGY STATUS TO ANALGESIC AGENT STATUS 10/05/2019 TULIO CABA MD Ot Z88.8 ALLERGY STATUS TO OTH DRUG/MEDS/BIOL SUB 10/05/2019 TULIO CABA MD Ot Z90.49 ACQUIRED ABSENCE OF OTHER SPECIFIED PART 10/05/2019 TULIO CABA MD Ot Z98.51 TUBAL LIGATION STATUS 10/09/2019 TULIO CABA MD Ot F32.9 MAJOR DEPRESSIVE DISORDER, SINGLE EPISOD 10/09/2019 TULIO CABA MD Ot G43.709 CHRONIC MIGRAINE W/O AURA, NOT INTRACTAB 10/09/2019 TULIO CABA MD Ot G43.909 MIGRAINE, UNSP, NOT INTRACTABLE, WITHOUT 10/09/2019 TULIO CBAA MD Ot G62.9 POLYNEUROPATHY, UNSPECIFIED 10/09/2019 TULIO CABA MD Ot I10 ESSENTIAL (PRIMARY) HYPERTENSION 10/09/2019 TULIO CABA MD Ot R51 HEADACHE 10/09/2019 TULIO CABA MD Ot Z88.5 ALLERGY STATUS TO NARCOTIC AGENT STATUS 10/09/2019 ROSALES ESTRADA, TULIO Lenz Ot Z88.6 ALLERGY STATUS TO ANALGESIC AGENT STATUS 10/09/2019 ROSALES ESTRADA, TULIO Lenz Ot Z88.8 ALLERGY STATUS TO OTH DRUG/MEDS/BIOL SUB 10/09/2019 ROSALES ESTRADA, TULIO Lenz Ot Z90.49 ACQUIRED ABSENCE OF OTHER SPECIFIED PART 10/09/2019 ROSALES ESTRADA, TULIO Lenz Ot Z98.51 TUBAL LIGATION STATUS 11/27/2019 LEMOYNE BRADLEY AMBROSIO Ot G43.709 CHRONIC MIGRAINE W/O AURA, NOT INTRACTAB 11/27/2019 BRADLEY COOK DO Ot G43.909 MIGRAINE, UNSP, NOT INTRACTABLE, WITHOUT 11/27/2019 JOEYBRADLEY VALDOVINOS DO Ot I10 ESSENTIAL (PRIMARY) HYPERTENSION 11/27/2019 JOEYBRADLEY VALDOVINOS DO Ot Z88 .5 ALLERGY STATUS TO NARCOTIC AGENT STATUS 11/27/2019 JOEYBRADLEY VALDOVINOS DO Ot Z88 .8 ALLERGY STATUS TO OTH DRUG/MEDS/BIOL SUB 11/27/2019 LEMOYNE BRADLEY AMBROSIO Ot Z98.51 TUBAL LIGATION STATUS 11/29/2019 BRADLEY COOK DO Ot G43.709 CHRONIC MIGRAINE W/O AURA, NOT INTRACTAB 11/29/2019 BRADLEY COOK DO Ot G43.909 MIGRAINE, UNSP, NOT INTRACTABLE, WITHOUT 11/29/2019 JOEYBRADLEY VALDOVINOS DO Ot I10 ESSENTIAL (PRIMARY) HYPERTENSION 11/29/2019 BRADLEY COOK DO Ot Z88 .5 ALLERGY STATUS TO NARCOTIC AGENT STATUS 11/29/2019 LEMOYNE BRADLEY AMBROSIO Ot Z88 .8 ALLERGY STATUS TO OTH DRUG/MEDS/BIOL SUB 11/29/2019 BRADLEY COOK DO Ot Z98.51 TUBAL LIGATION STATUS 12/12/2019 PETTY DO, THOMAS Turner Ot G43.9 09 MIGRAINE, UNSP, NOT INTRACTABLE, WITHOUT 12/12/2019 POTOSI DO, THOMAS Turner Ot I10 ESSENTIAL (PRIMARY) HYPERTENSION 12/12/2019 POTOSI DO, THOMAS B Ot R51 HEADACHE 12/12/2019 POTOSI DO, THOMAS Turner Ot Z88.5 ALLERGY STATUS TO NARCOTIC AGENT STATUS 12/12/2019 THOMAS PETTY DO Ot Z88.6 ALLERGY STATUS TO ANALGESIC AGENT STATUS 12/12/2019 THOMAS PETTY DO Ot Z88.8 ALLERGY STATUS TO OTH DRUG/MEDS/BIOL SUB Procedures There is no data. Results There is no data. Encounters ACCT No. Visit Date/Time Discharge Status Pt. Type Provider Facility Loc./Unit Complaint [id number] 12/09/2019 17:28:00 20:46:00 DIS Outpatient THOMAS PETTY DO [facility] ER FS HEADACHE [id number] 11/27/2019 16:55:00 17:20:00 DIS Emergency BRADLEY COOK DO [facility] ER FS MIGRIANE,NAUSEA [id number] 10/05/2019 15:19:00 16:57:00 DIS Emergency TULIO CABA MD [facility] ER FS MIGRAINE [id number] 08/03/2019 11:30:00 13:05:00 DIS Emergency MEGAN BEDOYA DO [facility] ER FS HEADACHE [id number] 04/18/2019 19:48:00 23:50:00 DIS Emergency MEGAN BEDOYA DO [facility] ER FS MIGRAINE [id number] 04/09/2019 17:05:00 18:51:00 DIS Emergency BRADLEY COOK DO [facility] ER FS MIGRAINE [id number] 03/13/2019 15:06:00 16:14:00 DIS Emergency LEANDRO COOPER MD [facility] ER FS MIGRAINE [id number] 02/16/2019 10:29:00 11:17:00 DIS Emergency LUCINA CROWLEY DO [facility] ER FS HEADACHE [id number] 01/27/2019 19:45:00 21:20:00 DIS Emergency BRADLEY COOK DO [facility] ER FS HEADACHE [id number] 01/17/2019 16:40:00 17:20:00 DIS Emergency BRADLEY COOK DO [facility] ER FS MIGRAINE, NAUSEA [id number] 12/22/2018 19:08:00 20:29:00 DIS Emergency LIZET BAUMANN DO [facility] ER FS MIGRAINE, NAUSEA, VOMIT ING [id number] 12/05/2018 18:51:00 20:15:00 DIS Emergency LIZET BAUMANN DO [facility] ER FS MIGRAINE, NAUSEA, VOMIT ING
== END 2019-12-22 14:35 | disposition home or self-care (01) ==
LOC: EDUNIT# 13:15 → ER FS 13:57
DX: G43.709 Chronic migraine without aura, not intractable, without status migrainosus (principal); I10 Essential (primary) hypertension; Z88.5 Allergy status to narcotic agent; Z88.8 Allergy status to other drugs, medicaments and biological substances; Z98.51 Tubal ligation status
CPT/HCPCS: 99284

== ENCOUNTER 2020-05-05 13:38 | Emergency (ER) | payer MEDICARE, MEDICAID ==
[2020-05-05] MEDS ORDERED: IBUPROFEN 800 MG (MOTRIN) TAB PO ONE (14:30)
[2020-05-05] MEDS ORDERED: PROMETHAZINE INJ 25 MG/ML (PHENERGAN) AMP IM ONE (14:30)
[2020-05-05] MEDS ORDERED: LORazepam INJ 2 MG/ML (ATIVAN) VIAL IM ONE (14:30)
[2020-05-05] MEDS ORDERED: ACETAMINOPHEN 500 MG TAB (TYLENOL) PO ONE (14:30)
--- NOTE | 2020-05-05 14:32 | ED Headache ---
General Chief Complaint: Head/Cervical Problems Stated Complaint: HEADACHE Source: patient Exam Limitations: no limitations History of Present Illness Date Seen by Provider: May 05, 2020 Time Seen by Provider: 14:22 Initial Comments Patient present ER by private conveyance from home with chief complaint of migraine headache for 1 day. She has a history of migraine headaches and is disabled for these and follows with a neurologist in [facility]. She d oes injections. She says usually she comes in and gets a shot of fentanyl and Phenergan which make her sleepy so she can go home and then he gets over it. She does not diabetes. She has a multitude of allergies; NSAID seemed to cause the blood to Hay in her veins. Benadryl does something similar. Allergies and Home Medications Allergies Coded Allergies: butorphanol (Verified Allergy, Unknown, 01/27/19) diphenhydramine (Verified Allergy, Unknown, 01/27/19) hydroxyzine (Verified Allergy, Unknown, 01/27/19) ketorolac (Verified Allergy, Unknown, 01/27/19) nalbuphine (Verified Allergy, Unknown, 01/27/19) paroxetine (Verified Allergy, Unknown, 04/18/19) prednisone (Verified Allergy, Unknown, 01/27/19) succinylcholine (Verified Allergy, Unknown, 01/27/19) tramadol (Verified Allergy, Unknown, 01/27/19) Home Medications Docusate Sodium 100 Mg Capsule, 100 MG PO DAILY, (Reported) Ibuprofen 600 Mg Tablet, 600 MG PO Q6H PRN for PAIN-MILD, (Reported) Losartan Potassium 25 Mg Tablet, 25 MG PO DAILY, (Reported) Oxycodone HCl/Acetaminophen 1 Each Tablet, 1 TAB PO Q8H PRN for PAIN-MODERATE, (Reported) Promethazine HCl 25 Mg Tablet, 25 MG PO Q6H PRN for NAUSEA/VOMITING, (Reported) Promethazine HCl 25 Mg Supp.rect, 25 MG RC 6 hours Prescribed by: THOMAS PETTY on 12/09/192043 Patient Home Medication List Home Medication List Reviewed: Yes Review of Systems Review of Systems Constitutional: No chills, No diaphoresis Eyes: Denies Blindness, Denies Blurred Vision Ears, Nose, Mouth, Throat: denies ear pain, denies ear discharge Respiratory: No cough, No short of breath Cardiovascular: No Hx of Intervention, No palpitations Gastrointestinal: No abdominal pain, No constipation, No diarrhea Genitourinary: No discharge, No dysuria All Other Systems Reviewed Negative Unless Noted: Yes Past Sspyiif-Jayoie-Pkqpvf Hx Patient Social History Alcohol Use: Denies Use Recreational Drug Use: No Smoking Status: Never a Smoker 2nd Hand Smoke Exposure: No Recent Foreign Travel: No Contact w/Someone Who Travel: No Recent Hopitalizations: No Physical Abuse: No Sexual Abuse: No Mistreated: No Fear: No Immunizations Up To Date Tetanus Booster (TDap): Unknown Seasonal Allergies Seasonal Allergies: No Past Medical History Surgeries: Yes (BILATERAL MASTECTOMY, BILAT BREAST AUGMENTATION) Appendectomy, Orthopedic, Tubal Ligation Respiratory: No Cardiac: Yes Hypertension Neurological: Yes 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 oz. 79.174454im; 26.00 BMI Method:Stated General Appearance: WD/WN, no apparent distress HEENT: normal ENT inspection, TMs normal, pharynx normal Neck: full range of motion, supple, normal inspection Cardiovascular: normal peripheral pulses, regular rate, rhythm Respiratory: lungs clear, normal breath sounds, no respiratory distress, no accessory muscle use Gastrointestinal: non tender, soft Extremities: normal range of motion, non-tender, normal inspection Psychiatric: alert, oriented x 3 Crainal Nerves: normal hearing, normal speech Skin: normal color, warm/dry Progress/Results/Core Measures Results/Orders My Orders Orders - GIOVANNI CASTILLO Promethazine Injection (Phenergan Injec (05/05/20 14:30) Acetaminophen Tablet (Tylenol Tablet) (05/05/20 14:30) Ibuprofen Tablet (Motrin Tablet) (05/05/20 14:30) Lorazepam Injection (Ativan Injection) (05/05/20 14:30) Dexamethasone Injection (Decadron Inject (05/05/20 14:30) Medications Given in ED Current Medications Medications Dose Ordered Sig/Ronaldo Route Start Time Stop Time Status Last Admin Dose Admin Acetaminophen 1,000 mg ONCE ONCE PO 05/05/20 14:30 05/05/20 14:31 DC 05/05/20 14:41 1,000 MG Dexamethasone Sodium Phosphate 10 mg ONCE ONCE IM 05/05/20 14:30 05/05/20 14:31 DC 05/05/20 14:41 10 MG Ibuprofen 800 mg ONCE ONCE PO 05/05/20 14:30 05/05/20 14:31 DC 05/05/20 14:41 800 MG Lorazepam 2 mg ONCE ONCE IM 05/05/20 14:30 05/05/20 14:31 DC 05/05/20 14:42 2 MG Promethazine HCl 25 mg ONCE ONCE IM 05/05/20 14:30 05/05/20 14:31 DC 05/05/20 14:41 25 MG Vital Signs/I&O 05/05/20 15:13 Pulse 65 Resp 16 B/P (MAP) 124/80 Pulse Ox 97 Progress Progress Note : Time: 14:33 Progress Note Most of her allergies do not seem like true allergies sort and offer her Ty lenol, Motrin, Phenergan IM, Ativan 2 mg IM. We have discussed with her that opiates are contraindicated in treatment of migraines because it will make the migraine go away however he will come back and become more recurrent. We did offer her a shot of dexamethasone to help reduce the recurrence risk of migraines and she agreed to this. We have encouraged her to go home and get some sleep and follow-up outpatient as necessary. Return precautions were given. Departure Impression Primary Impression: Migraine Qualified Codes: G43.009 - Migraine without aura, not intractable, without status migrainosus Disposition: 01 HOME, SELF-CARE Condition: Stable Departure-Patient Inst. Decision time for Depature: 14:34 Referrals: SELF,ANNETTE ESTRADA (PCP/Family) Primary Care Physician Patient Instructions: Migraine Headache (DC) Add. Discharge Instructions: Drink plenty of water and get some sleep. Continue to use Tylenol and/or ibuprofen as necessary for pain relief. Return to the ER if you begin to experience fever, weakness numbness or other worrisome symptoms. All discharge instructions reviewed with patient and/or family. Voiced understanding. GIOVANNI CASTILLO May 05, 2020 14:32
[2020-05-05 15:13] VITALS: BP 124/80
--- OUTSIDE RECORDS SUMMARY | 2020-05-05 15:39 | XMS REPORT | Continuity of Care Document ---
Author Organization Unknown Address Unknown Phone Unavailable Allergies Active Description Code Type Severity Reaction Onset Reported/Identified Relationship to Patient Clinical Status Yes butorphanol [id number] Drug Aller gy Unknown N/A 01/27/2019 Yes diphenhydramine [id number] D rug Allergy Unknown N/A 01/27/2019 Yes hydroxyzine [id number] Drug Aller gy Unknown N/A 01/27/2019 Yes ketorolac [id number] Drug Allergy Unknown N/A 01/27/2019 Yes nalbuphine [id number] Drug Allerg y Unknown N/A 01/27/2019 Yes prednisone [id number] Drug Allerg y Unknown N/A 01/27/2019 Yes succinylcholine [id number] D rug Allergy Unknown N/A 01/27/2019 Yes tramadol [id number] Drug Allergy Unknown N/A 01/27/2019 Yes paroxetine [id number] Drug Allerg y Unknown N/A 04/18/2019 Medications There is no data. Problems Date Dx Coded Attending Type Code Diagnosis Diagnosed By 12/05/2018 LIZET BAUMANN DO Ot G43.909 MIGRAINE, UNSP, NOT INTRACTABLE, WITHOUT 12/05/2018 LIZET BAUMANN DO Ot Z88. 4 ALLERGY STATUS TO ANESTHETIC AGENT STATU 12/05/2018 LIZET BAUMANN DO Ot Z88. 6 ALLERGY STATUS TO ANALGESIC AGENT STATUS 12/05/2018 LIZET BAUMANN DO T Ot Z88. 8 ALLERGY STATUS TO OTH DRUG/MEDS/BIOL SUB 12/07/2018 LIZET BAUMANN DO Ot G43.909 MIGRAINE, UNSP, NOT INTRACTABLE, WITHOUT 12/07/2018 LIZET BAUMANN DO Ot Z88. 4 ALLERGY STATUS TO ANESTHETIC AGENT STATU 12/07/2018 LIZET BAUMANN DO Ot Z88. 6 ALLERGY STATUS TO ANALGESIC AGENT STATUS 12/07/2018 LIZET BAUMANN DO Ot Z88. 8 ALLERGY STATUS TO [...] AGENT STATU 01/17/2019 BRADLEY COOK DO Ot Z88 .6 ALLERGY [...] MAJOR DEPRESSIVE DISORDER, SINGLE EPISOD 01/19/2019 BRADLEY COKO DO, Ot G43.909 MIGRAINE, UNSP, NOT INTRACTABLE, [...] MIGRAINE, UNSP, NOT INTRACTABLE, WITHOUT 10/09/2019 TULIO CABA MD Ot G62.9 POLYNEUROPATHY, UNSPECIFIED 10/09/2019 TULIO [...] Lenz Ot Z98.51 TUBAL LIGATION STATUS 11/27/2019 [place] BRADLEY AMBROSIO Ot G43.709 CHRONIC MIGRAINE W/O AURA, NOT INTRACTAB 11/27/2019 BRADLEY COOK DO Ot G43.909 MIGRAINE, UNSP, NOT INTRACTABLE, WITHOUT 11/27/2019 JOEYBRADLEY VALDOVINOS DO Ot I10 ESSENTIAL (PRIMARY) HYPERTENSION 11/27/2019 JOEYBRADLEY VALDOVINOS DO Ot Z88 .5 ALLERGY STATUS TO NARCOTIC AGENT STATUS 11/27/2019 JOEYBRADLEY VALDVOINOS DO Ot Z88 .8 ALLERGY STATUS TO OTH DRUG/MEDS/BIOL SUB 11/27/2019 [place] BRADLEY AMBROSIO Ot Z98.51 TUBAL LIGATION STATUS 11/29/2019 BRADLEY COOK DO Ot G43.709 CHRONIC MIGRAINE W/O AURA, NOT INTRACTAB 11/29/2019 BRADLEY COOK DO Ot G43.909 MIGRAINE, UNSP, NOT INTRACTABLE, WITHOUT 11/29/2019 JOEYBRADLEY VALDOVINOS DO Ot I10 ESSENTIAL (PRIMARY) HYPERTENSION 11/29/2019 BRADLEY COOK DO Ot Z88 .5 ALLERGY STATUS TO NARCOTIC AGENT STATUS 11/29/2019 [place] BRADLEY AMBROSIO Ot Z88 .8 ALLERGY STATUS TO OTH DRUG/MEDS/BIOL SUB 11/29/2019 BRADLEY COOK DO Ot Z98.51 TUBAL LIGATION STATUS 12/09/2019 [place] DO, THOMAS Turner Ot G43.9 09 MIGRAINE, UNSP, NOT INTRACTABLE, WITHOUT 12/09/2019 [place] DO, THOMAS Turner Ot I10 ESSENTIAL (PRIMARY) HYPERTENSION 12/09/2019 [place] DO, THOMAS B Ot R51 HEADACHE 12/09/2019 [place] DO, THOMAS Turner Ot Z88.5 ALLERGY STATUS TO NARCOTIC AGENT STATUS 12/09/2019 PETTY DO, THOMAS Turner Ot Z88.6 ALLERGY STATUS TO ANALGESIC AGENT STATUS 12/09/2019 PETTY DO, THOAMS Turner Ot Z88.8 ALLERGY STATUS TO OTH DRUG/MEDS/BIOL SUB 12/12/2019 PETTY DO, THOMAS Turner Ot G43.9 09 MIGRAINE, UNSP, NOT INTRACTABLE, WITHOUT 12/12/2019 PETTY DO, THOMAS Turner Ot I10 ESSENTIAL (PRIMARY) HYPERTENSION 12/12/2019 PETTY DO, THOMAS Turner Ot R51 HEADACHE 12/12/2019 PETTY DO, THOMAS Turner Ot Z88.5 ALLERGY STATUS TO NARCOTIC AGENT STATUS 12/12/2019 PETTY DO, THOMAS Turner Ot Z88.6 ALLERGY STATUS TO ANALGESIC AGENT STATUS 12/12/2019 PET[place] DO, THOMAS Turner Ot Z88.8 ALLERGY STATUS TO OTH DRUG/MEDS/BIOL SUB 12/22/2019 Ot G43.709 CH RONIC MIGRAINE W/O AURA, NOT INTRACTAB 12/22/2019 Ot I10 ESSENT IAL (PRIMARY) HYPERTENSION 12/22/2019 Ot R51 HEADACHE 12/22/2019 Ot Z88.5 ZEB RGY STATUS TO NARCOTIC AGENT STATUS 12/22/2019 Ot Z88.8 ZEB RGY STATUS TO OTH DRUG/MEDS/BIOL SUB 12/22/2019 Ot Z98.51 TUB AL LIGATION STATUS 12/25/2019 Ot G43.709 CH RONIC MIGRAINE W/O AURA, NOT INTRACTAB 12/25/2019 Ot I10 ESSENT IAL (PRIMARY) HYPERTENSION 12/25/2019 Ot R51 HEADACHE 12/25/2019 Ot Z88.5 ZEB RGY STATUS TO NARCOTIC AGENT STATUS 12/25/2019 Ot Z88.8 ZEB RGY STATUS TO OTH DRUG/MEDS/BIOL SUB 12/25/2019 Ot Z98.51 TUB AL LIGATION STATUS Procedures There is no data. Results There is no data. Encounters ACCT No. Visit Date/Time Discharge Status Pt. Type Provider Facility Loc./Unit Complaint [id number] 12/09/2019 17:28:00 020 20:46:00 DIS Emergency THOMAS PETTY DO [facility] ER FS HEADACHE [id number] 11/27/2019 16:55:00 020 17:20:00 DIS Emergency BRADLEY COOK DO [facility] ER FS MIGRIANE,NAUSEA [id number] 10/05/2019 15:19:00 16:57:00 DIS Emergency TULIO CABA MD [facility] ER FS MIGRAINE [id number] 08/03/2019 11:30:00 13:05:00 DIS Emergency BEDOYA DOMEGAN [facility] ER FS HEADACHE [id number] 04/18/2019 19:48:00 23:50:00 DIS Emergency BEDOYA DOMEGAN [facility] ER FS MIGRAINE [id number] 04/09/2019 17:05:00 18:51:00 DIS Emergency BRADLEY COOK DO [facility] ER FS MIGRAINE [id number] 03/13/2019 15:06:00 16:14:00 DIS Emergency LEANDRO COOPER MD [facility] ER FS MIGRAINE [id number] 02/16/2019 10:29:00 11:17:00 DIS Emergency LUCINA CROWLEY DO [facility] ER FS HEADACHE [id number] 01/27/2019 19:45:00 21:20:00 DIS Emergency BRADLEY COOK DO [facility] ER FS HEADACHE [id number] 01/17/2019 16:40:00 17:20:00 DIS Emergency BRADLEY COOK DO [facility] ER FS MIGRAINE, NAUSEA [id number] 12/22/2018 19:08:00 20:29:00 DIS Emergency PSATOR AMBROSIO, LIZET T [facility] ER FS MIGRAINE, NAUSEA, VOMIT ING [id number] 12/05/2018 18:51:00 20:15:00 DIS Emergency PASTOR DO, LIZET T [facility] ER FS MIGRAINE, NAUSEA, VOMIT ING [id number] 05/05/2020 13:39:[address] Emergency ANNA ESTRADA, GIOVANNI Jenkins [facility] ER FS HEADACHE [id number] 12/22/2019 13:57:00 Document Registration
== END 2020-05-05 15:12 | disposition home or self-care (01) ==
LOC: EDUNIT# 13:38 → ER FS 13:39
DX: G43.909 Migraine, unspecified, not intractable, without status migrainosus (principal); I10 Essential (primary) hypertension; Z88.8 Allergy status to other drugs, medicaments and biological substances; Z88.5 Allergy status to narcotic agent; Z88.6 Allergy status to analgesic agent
CPT/HCPCS: 99284

== ENCOUNTER → 2021-10-28 | Outpatient (CLI) | payer MEDICARE, MEDICAID ==
[~2021-10-28] MED LIST changes: -SUMA5SPR2 NS; +SUMA5SPR6 NS
--- NOTE | 2021-10-28 10:41 | Diagnostic Imaging Report ---
INDICATION: Fall with right shoulder pain. TIME OF EXAM: 10:10 AM 2 views right shoulder show normal glenohumeral and acromio clavicular alignment. Acromiohumeral space is normal. No fracture or dislocation is identified. IMPRESSION: No acute bony abnormality is detected. Dictated by: Dictated on workstation # [id number]
== END ==
LOC: RAD FS 10:02
PROVIDERS: ATTEND Family Medicine
DX: M25.511 Pain in right shoulder (principal); W19.XXXA Unspecified fall, initial encounter
CPT/HCPCS: 73030

== ENCOUNTER 2022-03-02 16:31 | Emergency (ER) | payer MEDICARE, MEDICAID ==
[~2022-03-02] VITALS: Ht 172.7 cm; Wt 83.9 kg
[2022-03-02 16:45] VITALS: BP 123/55
[2022-03-02] MEDS ORDERED: fentaNYL INJ 100 MCG/2 ML AMP IM STA (17:01)
[2022-03-02] MEDS ORDERED: PROMETHAZINE INJ 25 MG/ML (PHENERGAN) AMP IM STA (17:01)
--- NOTE | 2022-03-02 17:01 | ED Headache ---
General Chief Complaint: Head/Cervical Problems Stated Complaint: HEADACHE Source: patient, old records History of Present Illness Date Seen by Provider: March 02, 2022 Time Seen by Provider: 16:40 Initial Comments 62-year-old female presenting with complaints of migraine headache for the last few days. She states that she recently got her scheduled Botox injections that she gets every 12 weeks. She has already tried taking DHEA and her other antimigraine medications at home with little to no improvement. She had gone to a psychiatric appointment at [place] today and after she got home she was still having a bad headache so she came here to the emergency department. She states that she has had some nausea and vomiting but has also been able to keep down some fluids. She denies fever, chills, change in vision, neck pain, cough, abdominal pain. She states that migraine is on the left side of her head behind her eye and is consistent with her previous migraine headaches. Severity/Quality: severe Prior Headaches/Recent Trauma: frequent headaches Modifying Factors: worse with exposure to light Associated Symptoms: No confusion, No fatigue, No facial pain, No fever/chills, No flushing, No loss of consciousness; nausea/vomiting; No nasal congestion, No nasal drainage, No numbness in legs/feet, No rash, No seizures, No sinus infection, No stiff neck, No vision changes, No weakness Allergies and Home Medications Allergies Coded Allergies: butorphanol (Verified Allergy, Unknown, 01/27/19) diphenhydramine (Verified Allergy, Unknown, 01/27/19) hydroxyzine (Verified Allergy, Unknown, 01/27/19) ketorolac (Verified Allergy, Unknown, 01/27/19) nalbuphine (Verified Allergy, Unknown, 01/27/19) paroxetine (Verified Allergy, Unknown, 04/18/19) prednisone (Verified Allergy, Unknown, 01/27/19) succinylcholine (Verified Allergy, Unknown, 01/27/19) tramadol (Verified Allergy, Unknown, 01/27/19) Patient Home Medication List Home Medication List Reviewed: Yes Alprazolam (Xanax) 0.5 Mg Tablet, 0.5 MG PO, (Reported) Entered as Reported by: VIKASH PARRA on 12/05/181917 Atorvastatin Calcium (Atorvastatin Calcium) 40 Mg Tablet, 40 MG PO, (Reported) Entered as Reported by: VIKASH PARRA on 12/05/181917 Dihydroergotamine Mesylate (Dihydroergotamine Mesylate) 1 Ml [place].pump, 1 ML NS, (Reported) Entered as Reported by: VIKASH PARRA on 12/05/181917 Docusate Sodium (Colace) 100 Mg Capsule, 100 MG PO DAILY, (Reported) Entered as Reported by: VIKASH PARRA on 12/05/181917 Estradiol (Estradiol) 10 Mcg Tablet, 10 MCG VG, (Reported) Entered as Reported by: VIKASH PARRA on 12/05/181917 Fluoxetine HCl (Prozac) 40 Mg Capsule, 80 MG PO, (Reported) Entered as Reported by: VIKASH PARRA on 12/05/181917 Ibuprofen (Ibuprofen) 600 Mg Tablet, 600 MG PO Q6H PRN for PAIN-MILD, (Reported) Entered as Reported by: VIKASH PARRA on 12/05/181917 Losartan Potassium (Cozaar) 25 Mg Tablet, 25 MG PO DAILY, (Reported) Entered as Reported by: VIKASH PARRA on 12/05/181917 Ondansetron HCl (Zofran) 8 Mg Tablet, 8 MG PO, (Reported) Entered as Reported by: VIKASH PARRA on 12/05/181917 Oxycodone HCl/Acetaminophen (Percocet 10-325 mg Tablet) 1 Each Tablet, 1 TAB PO Q8H PRN for PAIN-MODERATE, (Reported) Entered as Reported by: VIKASH PARRA on 12/05/181917 Progesterone,Micronized (Progesterone) 100 Mg Capsule, 100 MG PO, (Reported) Entered as Reported by: VIKASH PARRA on 12/05/181917 Promethazine HCl (Promethazine Tablet) 25 Mg Tablet, 25 MG PO Q6H PRN for NAUSEA/VOMITING, (Reported) Entered as Reported by: VIKASH PARRA on 12/05/181917 Promethazine HCl (Promethazine Suppository) 25 Mg Supp.rect, 25 MG RC 6 hours Prescribed by: THOMAS PETTY on 12/09/192043 Sumatriptan (Sumatriptan) 5 Mg [place], 5 MG NS, (Reported) Entered as Reported by: VIKASH PARRA on 12/05/181917 Zolmitriptan (Zomig) 2.5 Mg [place], 2.5 MG NS, (Reported) Entered as Reported by: VIKASH PARRA on 12/05/181917 [BUT/APAP/CAF Tablets] , (Reported) Entered as Reported by: MICHELINE HURT on 01/27/192043 [amovig] , (Reported) Entered as Reported by: VIKASH PARRA on 12/05/181917 Review of Systems Review of Systems Constitutional: No chills, No diaphoresis, No dizziness, No fever Eyes: Photophobia Ears, Nose, Mouth, Throat: denies ear pain, denies ear discharge, denies nose pain, denies nose discharge, denies epistaxis, denies mouth pain, denies mouth swelling Respiratory: No cough, No short of breath Cardiovascular: No chest pain Gastrointestinal: nausea, vomiting Genitourinary: No dysuria Musculoskeletal: no symptoms reported Skin: no symptoms reported Psychiatric/Neurological: Headache Past Rnyjzsx-Cizavf-Uvaikn Hx Immunizations Up To Date Tetanus Booster (TDap): Unknown Seasonal Allergies Seasonal Allergies: No Past Medical History Surgery/Hospitalization HX: Chronic Migraine Headaches Surgeries: Yes (BILATERAL MASTECTOMY, BILAT BREAST AUGMENTATION) Appendectomy, Orthopedic, Tubal Ligation Respiratory: No Cardiac: Yes Hypertension Neurological: Yes 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 oz. 79.965469uv; 26.00 BMI Method:Stated General Appearance: WD/WN, no apparent distress HEENT: PERRL/EOMI, pharynx normal Neck: non-tender, full range of motion, supple, normal inspection Cardiovascular: normal peripheral pulses, regular rate, rhythm Respiratory: chest non-tender, lungs clear, normal breath sounds, no respiratory distress, no accessory muscle use Gastrointestinal: normal bowel sounds, non tender, soft, no pulsatile mass Extremities: normal range of motion, non-tender, normal capillary refill Psychiatric: alert, oriented x 3 Crainal Nerves: normal hearing, normal speech, PERRL Coordination/Gait: normal gait Motor/Sensory: no motor deficit, no sensory deficit, no pronator drift Skin: normal color, warm/dry Progress/Results/Core Measures Results/Orders My Orders Orders - JANIA HARMON MD Fentanyl Inj (Sublimaze Injection) (03/02/22 17:01) Promethazine Injection (Phenergan Injec (03/02/22 17:01) Vital Signs/I&O 03/02/22 16:45 Temp 36.3 Pulse 88 Resp 16 B/P (MAP) 123/55 (77) Pulse Ox 100 O2 Delivery Room Air Progress Progress Note : Progress Note Patient states that if she has to go to the emergency department usually she requires fentanyl and Phenergan to help her go home to rest. Since she is already tried her migraine medicines at home and is allergic to several of the other medicines that we would give for typical migraine cocktail will try giving the fentanyl and phenergan. Advised patient that usually we avoid the narcotics and migraines and only give it as a last resort due to having rebound effect. She stated that she was aware of that but takes chronic pain medicine anyway and that these are the only medicines that help her when she gets this bad. From review of her old chart will give Fentanyl 75 mcg and Phenergan 25 mg IM and let her go home and rest Departure Impression Primary Impression: Migraine headache without aura Qualified Codes: G43.011 - Migraine without aura, intractable, with status migrainosus Disposition: HOME, SELF-CARE Condition: Stable Departure-Patient Inst. Decision time for Depature: 17:00 Referrals: SELFANNETTE MD (PCP) Primary Care Physician Patient Instructions: Home Headache Remedies, Migraines in Adults Add. Discharge Instructions: Rest in a cool dark room. Continue on your regular medicines. Stay well hydrated and keep sipping on fluids to help with your hydration All discharge instructions reviewed with patient and/or family. Voiced understanding. JANIA HARMON MD March 02, 2022 17:01
== END 2022-03-02 17:15 | disposition home or self-care (01) ==
LOC: EDUNIT# 16:31 → ER FS 16:32
DX: G43.011 Migraine without aura, intractable, with status migrainosus (principal); Z79.899 Other long term (current) drug therapy
CPT/HCPCS: 99284

== ENCOUNTER 2022-04-30 09:36 | Emergency (ER) | payer MEDICARE, MEDICAID ==
[~2022-04-30] VITALS: Ht 172 cm; Wt 81.0 kg
[2022-04-30] MEDS ORDERED: PROMETHAZINE INJ 25 MG/ML (PHENERGAN) AMP IM ONE (10:00)
[2022-04-30] MEDS ORDERED: fentaNYL INJ 100 MCG/2 ML AMP IM ONE (10:00)
--- NOTE | 2022-04-30 10:03 | ED Headache ---
General Chief Complaint: Head/Cervical Problems Stated Complaint: HEADACHE Nursing Triage Note: Patient reports a headache for the last 3 days. Source: patient Exam Limitations: no limitations History of Present Illness Date Seen by Provider: Apr 30, 2022 Time Seen by Provider: 09:48 Initial Comments 62-year-old female patient with history of hypertension, depression, migraine headache complaining of migraine headache for the last 3 days. Patient complaining of gradual onset of left retro-orbital throbbing pain with radiation to the back of her head as a constant pain that gradually getting worse. Patient said her pain was 5/10 and right now rated her pain 8-9 over 10. Patient complaining of nausea and 3 episodes of vomiting, photophobia, phonophobia. Patient states she took Topamax and Zomig and Zofran without improvement of her pain and nausea. Patient denies fever, focal neurodeficit, head injury, chest pain and shortness of breath. Patient states her next Botox injection is due on May 19. Patient states she usually gets Botox every 12 weeks but her headache is started to increase after 8 weeks of injection. Patient states her insurance does not cover for Botox injection before 12 weeks. Severity/Quality: severe Location: frontal Prior Headaches/Recent Trauma: frequent headaches Modifying Factors: worse with cold therapy; improves with exposure to light; worse with immobilization, worse with medication, worse with movement, worse with rest, worse with other Associated Symptoms: No confusion, No fever/chills, No loss of consciousness, No weakness Allergies and Home Medications Allergies Coded Allergies: butorphanol (Verified Allergy, Unknown, 01/27/19) diphenhydramine (Verified Allergy, Unknown, 01/27/19) hydroxyzine (Verified Allergy, Unknown, 01/27/19) ketorolac (Verified Allergy, Unknown, 01/27/19) nalbuphine (Verified Allergy, Unknown, 01/27/19) paroxetine (Verified Allergy, Unknown, 04/18/19) prednisone (Verified Allergy, Unknown, 01/27/19) succinylcholine (Verified Allergy, Unknown, 01/27/19) tramadol (Verified Allergy, Unknown, 01/27/19) Patient Home Medication List Home Medication List Reviewed: Yes Alprazolam (Xanax) 0.5 Mg Tablet, 0.5 MG PO, (Reported) Entered as Reported by: VIKASH PARRA on 12/05/181917 Atorvastatin Calcium (Atorvastatin Calcium) 40 Mg Tablet, 40 MG PO, (Reported) Entered as Reported by: VIKASH PARRA on 12/05/181917 Dihydroergotamine Mesylate (Dihydroergotamine Mesylate) 1 Ml [place].pump, 1 ML NS, (Reported) Entered as Reported by: VIKASH PARRA on 12/05/181917 Docusate Sodium (Colace) 100 Mg Capsule, 100 MG PO DAILY, (Reported) Entered as Reported by: VIKASH PARRA on 12/05/181917 Estradiol (Estradiol) 10 Mcg Tablet, 10 MCG VG, (Reported) Entered as Reported by: VIKASH PARRA on 12/05/181917 Fluoxetine HCl (Prozac) 40 Mg Capsule, 80 MG PO, (Reported) Entered as Reported by: VIKASH PARRA on 12/05/181917 Ibuprofen (Ibuprofen) 600 Mg Tablet, 600 MG PO Q6H PRN for PAIN-MILD, (Reported) Entered as Reported by: VIKASH PARRA on 12/05/181917 Losartan Potassium (Cozaar) 25 Mg Tablet, 25 MG PO DAILY, (Reported) Entered as Reported by: VIKASH PARRA on 12/05/181917 Ondansetron HCl (Zofran) 8 Mg Tablet, 8 MG PO, (Reported) Entered as Reported by: VIKASH PARRA on 12/05/181917 Oxycodone HCl/Acetaminophen (Percocet 10-325 mg Tablet) 1 Each Tablet, 1 TAB PO Q8H PRN for PAIN-MODERATE, (Reported) Entered as Reported by: VIKASH PARRA on 12/05/181917 Progesterone,Micronized (Progesterone) 100 Mg Capsule, 100 MG PO, (Reported) Entered as Reported by: VIKASH PARRA on 12/05/181917 Promethazine HCl (Promethazine Tablet) 25 Mg Tablet, 25 MG PO Q6H PRN for NAUSEA/VOMITING, (Reported) Entered as Reported by: VIKASH PARRA on 12/05/181917 Promethazine HCl (Promethazine Suppository) 25 Mg Supp.rect, 25 MG RC 6 hours Prescribed by: THOMAS PETTY on 12/09/192043 Sumatriptan (Sumatriptan) 5 Mg [place], 5 MG NS, (Reported) Entered as Reported by: VIKASH PARRA on 12/05/181917 Zolmitriptan (Zomig) 2.5 Mg [place], 2.5 MG NS, (Reported) Entered as Reported by: VIKASH PARRA on 12/05/181917 [BUT/APAP/CAF Tablets] , (Reported) Entered as Reported by: MICHELINE HURT on 01/27/192043 [amovig] , (Reported) Entered as Reported by: VIKASH PARRA on 12/05/181917 Review of Systems Review of Systems Constitutional: no symptoms reported Eyes: Photophobia Ears, Nose, Mouth, Throat: no symptoms reported Respiratory: no symptoms reported Cardiovascular: no symptoms reported Gastrointestinal: see HPI Genitourinary: no symptoms reported Musculoskeletal: no symptoms reported Skin: no symptoms reported Psychiatric/Neurological: See HPI All Other Systems Reviewed Negative Unless Noted: Yes Past Lodtubv-Pskhss-Llmprl Hx Patient Social History Tobacco Use?: No Use of E-Cig and/or Vaping dev: Unable to obtain Substance use?: No Alcohol Use?: No Immunizations Up To Date Tetanus Booster (TDap): Unknown Seasonal Allergies Seasonal Allergies: No Past Medical History Surgery/Hospitalization HX: Chronic Migraine Headaches Surgeries: Yes (BILATERAL MASTECTOMY, BILAT BREAST AUGMENTATION) Appendectomy, Orthopedic, Tubal Ligation Respiratory: No Cardiac: Yes Hypertension Neurological: Yes Headaches /Migraines [employer] History: Tubal Ligation Genitourinary: No Gastrointestinal: Yes (ESOPHAGEAL STRICTURE) Musculoskeletal: No Endocrine: No HEENT: No Cancer: No Psychosocial: Yes Depression Integumentary: No Blood Disorders: No Adverse Reaction/Blood Tranf: No Family Medical History Migraines Physical Exam Vital Signs Vital Signs - First Documented 04/30/22 09:46 Temp 37.0 Pulse 76 Resp 18 B/P (MAP) 132/80 (97) Pulse Ox 100 Capillary Refill : Height, Weight, BMI Height: 5'7.00" Weight: 175lbs. oz. [id number]; 27.00 BMI Method:Stated General Appearance: WD/WN, mild distress HEENT: PERRL/EOMI, normal ENT inspection, TMs normal, pharynx normal Neck: non-tender, full range of motion, supple, normal inspection Cardiovascular: regular rate, rhythm, no edema, no gallop, no JVD Respiratory: chest non-tender, lungs clear, normal breath sounds, no respiratory distress, no accessory muscle use Gastrointestinal: normal bowel sounds, non tender, soft Back: normal inspection Extremities: normal range of motion, non-tender, normal inspection, no pedal edema Psychiatric: alert, oriented x 3 Crainal Nerves: normal hearing, normal speech, PERRL Motor/Sensory: no motor deficit, no sensory deficit Skin: normal color, warm/dry Lymphatic: no adenopathy Progress/Results/Core Measures Results/Orders My Orders Orders - LILLIAN TSAI MD Fentanyl Inj (Sublimaze Injection) (04/30/22 10:00) Promethazine Injection (Phenergan Injec (04/30/22 10:00) Vital Signs/I&O 04/30/22 09:46 Temp 37.0 Pulse 76 Resp 18 B/P (MAP) 132/80 (97) Pulse Ox 100 Blood Pressure Mean: 97 Progress Progress Note : Progress Note Evaluation of patient in ER showed 62-year-old female patient with history of recurrent migraine headache and previous emergency room visit to ER. Patient is allergic to several usual migraine headache medication and states usually she gets fentanyl and Phenergan IM shot. Patient informed that narcotic pain medication is not the usual treatment for migraine headache but because her allergy to several medication planned to give her 50 mcg of fentanyl and 25 mg of Phenergan IM. Patient felt better after medication and advised to follow-up with her neurologist and primary care physician for possible getting her Botox sooner than 12 weeks. Patient advised to continue home medication. No home prescription was given. Departure Impression Primary Impression: Migraine headache without aura Qualified Codes: G43.009 - Migraine without aura, not intractable, without status migrainosus Additional Impression: Nausea and vomiting Qualified Codes: R11.2 - Nausea with vomiting, unspecified Disposition: 01 HOME, SELF-CARE Condition: Improved Departure-Patient Inst. Decision time for Depature: 10:15 Referrals: ANNETTE OBRIEN MD (PCP) Primary Care Physician Patient Instructions: Nausea and Vomiting, Adult, Migraines in Adults, Home Headache Remedies Add. Discharge Instructions: Continue your home headache medication Follow-up with your neurologist and primary care physician for possible having Botox injection sooner than the scheduled Increase fluid intake Rest at dark and cool room Return to ER as needed All discharge instructions reviewed with patient and/or family. Voiced understanding. LILLIAN TSAI MD Apr 30, 2022 10:03
[2022-04-30 10:18] VITALS: BP 132/80
== END 2022-04-30 10:15 | disposition home or self-care (01) ==
LOC: EDUNIT# 09:36 → ER FS 09:37
DX: G43.009 Migraine without aura, not intractable, without status migrainosus (principal)
CPT/HCPCS: 99284

== ENCOUNTER 2022-11-09 10:03 | Emergency (ER) | payer MEDICARE, MEDICAID ==
[~2022-11-09] VITALS: Ht 172.7 cm; Wt 90.2 kg
[2022-11-09 10:08] VITALS: BP 167/78
--- NOTE | 2022-11-09 10:27 | ED Headache ---
General Chief Complaint: Head/Cervical Problems Stated Complaint: BURRELL Nursing Triage Note: Patient reports she has a long-standing history of migraine headaches, states her current migraine started Tuesday morning and has continued to worsen. She reports nausea/vomiting throughout the night. Source: patient Exam Limitations: no limitations History of Present Illness Date Seen by Provider: Nov 09, 2022 Time Seen by Provider: 10:08 Initial Comments 62-year-old female presents to the emergency department today for migraine headache. Symptoms started on Tuesday and have been progressive since that time. She states she had her Botox injection last week and it should be "kicking in" any time now. She has used her Zomig and DHEA without relief. She states last night she woke up vomiting. She does typically have vomiting when her pain gets severe. Migraine is exactly the same as previous episodes with left-sided headache that then radiates to become diffuse. She has phono and photophobia. No fevers chills. No neck stiffness. Allergies and Home Medications Allergies Coded Allergies: butorphanol (Verified Allergy, Unknown, 01/27/19) diphenhydramine (Verified Allergy, Unknown, 01/27/19) hydroxyzine (Verified Allergy, Unknown, 01/27/19) ketorolac (Verified Allergy, Unknown, 01/27/19) nalbuphine (Verified Allergy, Unknown, 01/27/19) paroxetine (Verified Allergy, Unknown, 04/18/19) prednisone (Verified Allergy, Unknown, 01/27/19) succinylcholine (Verified Allergy, Unknown, 01/27/19) tramadol (Verified Allergy, Unknown, 01/27/19) Patient Home Medication List Home Medication List Reviewed: Yes Alprazolam (Xanax) 0.5 Mg Tablet, 0.5 MG PO, (Reported) Entered as Reported by: VIKASH PARRA on 12/05/181917 Atorvastatin Calcium (Atorvastatin Calcium) 40 Mg Tablet, 40 MG PO, (Reported) Entered as Reported by: VIKASH PARRA on 12/05/181917 Dihydroergotamine Mesylate (Dihydroergotamine Mesylate) 1 Ml [place].pump, 1 ML NS, (Reported) Entered as Reported by: VIKASH PARRA on 12/05/181917 Docusate Sodium (Colace) 100 Mg Capsule, 100 MG PO DAILY, (Reported) Entered as Reported by: VIKASH PARRA on 12/05/181917 Estradiol (Estradiol) 10 Mcg Tablet, 10 MCG VG, (Reported) Entered as Reported by: VIKASH PARRA on 12/05/181917 Fluoxetine HCl (Prozac) 40 Mg Capsule, 80 MG PO, (Reported) Entered as Reported by: VIKASH PARRA on 12/05/181917 Ibuprofen (Ibuprofen) 600 Mg Tablet, 600 MG PO Q6H PRN for PAIN-MILD, (Reported) Entered as Reported by: VIKASH PARRA on 12/05/181917 Losartan Potassium (Cozaar) 25 Mg Tablet, 25 MG PO DAILY, (Reported) Entered as Reported by: VIKASH PARRA on 12/05/181917 Ondansetron HCl (Zofran) 8 Mg Tablet, 8 MG PO, (Reported) Entered as Reported by: VIKASH PARRA on 12/05/181917 Oxycodone HCl/Acetaminophen (Percocet 10-325 mg Tablet) 1 Each Tablet, 1 TAB PO Q8H PRN for PAIN-MODERATE, (Reported) Entered as Reported by: VIKASH PARRA on 12/05/181917 Progesterone,Micronized (Progesterone) 100 Mg Capsule, 100 MG PO, (Reported) Entered as Reported by: VIKASH PARRA on 12/05/181917 Promethazine HCl (Promethazine Tablet) 25 Mg Tablet, 25 MG PO Q6H PRN for NAUSEA/VOMITING, (Reported) Entered as Reported by: VIKASH PARRA on 12/05/181917 Promethazine HCl (Promethazine Suppository) 25 Mg Supp.rect, 25 MG RC 6 hours Prescribed by: THOMAS PETTY on 12/09/192043 Sumatriptan (Sumatriptan) 5 Mg [place], 5 MG NS, (Reported) Entered as Reported by: VIKASH PARRA on 12/05/181917 Zolmitriptan (Zomig) 2.5 Mg [place], 2.5 MG NS, (Reported) Entered as Reported by: VIKASH PARRA on 12/05/181917 [BUT/APAP/CAF Tablets] , (Reported) Entered as Reported by: MICHELINE HURT on 01/27/192043 [amovig] , (Reported) Entered as Reported by: VIKASH PARRA on 12/05/181917 Review of Systems Review of Systems Constitutional: no symptoms reported Eyes: No Symptoms Reported Ears, Nose, Mouth, Throat: no symptoms reported Respiratory: no symptoms reported Cardiovascular: no symptoms reported Gastrointestinal: no symptoms reported Genitourinary: no symptoms reported Skin: no symptoms reported Psychiatric/Neurological: Headache Past Tbhaeys-Pbvsnq-Pvwpqs Hx Patient Social History Tobacco Use?: Yes Use of E-Cig and/or Vaping dev: No Substance use?: No Alcohol Use?: No Immunizations Up To Date Tetanus Booster (TDap): Unknown Seasonal Allergies Seasonal Allergies: No Past Medical History Surgery/Hospitalization HX: Chronic Migraine Headaches Surgeries: Yes (BILATERAL MASTECTOMY, BILAT BREAST AUGMENTATION) Appendectomy, Orthopedic, Tubal Ligation Respiratory: No Cardiac: Yes Hypertension Neurological: Yes Headaches /Migraines [employer] History: Tubal Ligation Genitourinary: No Gastrointestinal: Yes (ESOPHAGEAL STRICTURE) Musculoskeletal: No Endocrine: No HEENT: No Cancer: No Psychosocial: Yes Depression Integumentary: No Blood Disorders: No Adverse Reaction/Blood Tranf: No Family Medical History Reviewed Nursing Family Hx No Pertinent Family Hx, Migraines Physical Exam Vital Signs Vital Signs - First Documented 11/09/22 10:08 Temp 36.0 Pulse 84 Resp 18 B/P (MAP) 167/78 (107) Pulse Ox 100 O2 Delivery Room Air Capillary Refill : Less Than 3 Seconds Height, Weight, BMI Height: 5'7.00" Weight: 175lbs. oz. 79.977546hd; 30.00 BMI Method:Stated General Appearance: WD/WN, no apparent distress HEENT: PERRL/EOMI, normal ENT inspection, pharynx normal Neck: non-tender, full range of motion, supple, normal inspection Cardiovascular: regular rate, rhythm, no murmur Respiratory: chest non-tender, lungs clear, normal breath sounds, no respiratory distress, no accessory muscle use Gastrointestinal: normal bowel sounds, non tender, soft, no organomegaly Back: normal inspection, no CVA tenderness, no vertebral tenderness Extremities: normal range of motion, non-tender, normal inspection, normal capillary refill Psychiatric: alert, oriented x 3 Crainal Nerves: normal hearing, normal speech, PERRL Coordination/Gait: normal finger to nose Motor/Sensory: no motor deficit, no sensory deficit Skin: normal color, warm/dry Lymphatic: no adenopathy Progress/Results/Core Measures Results/Orders My Orders Orders - DERICK BARRIENTOS DO Promethazine Injection (Phenergan Injec (11/09/22 10:30) Promethazine Injection (Phenergan Injec (11/09/22 10:30) Vital Signs/I&O 11/09/22 10:08 Temp 36.0 Pulse 84 Resp 18 B/P (MAP) 167/78 (107) Pulse Ox 100 O2 Delivery Room Air Blood Pressure Mean: 107 Departure Communication (Admissions) I had a discussion with the patient about being allergic to most typical migraine medications. She states understanding and tells me that she usually gets fentanyl and Phenergan IM. I advised her that I do not give narcotic pain medications for migraine headaches. I did go ahead and give her Phenergan. She states she feels comfortable going home and resting after IM Phenergan. She is discharged in otherwise stable condition. She has no fevers, neck stiffness and no evidence for meningitis. Her headaches are completely same as previous m igraine headaches, but no indication for imaging to rule out bleed or stroke. Impression Primary Impression: Migraine headache without aura Qualified Codes: G43.001 - Migraine without aura, not intractable, with status migrainosus Disposition: 01 HOME, SELF-CARE Condition: Stable Departure-Patient Inst. Referrals: SELFANNETTE MD (PCP/Family) Primary Care Physician Patient Instructions: Migraines (DC) Add. Discharge Instructions: Continue home therapies as previously recommended. Return to the emergency department for any severe concerns All discharge instructions reviewed with patient and/or family. Voiced understanding. DERICK BARRIENTOS DO Nov 09, 2022 10:27
[2022-11-09] MEDS ORDERED: PROMETHAZINE INJ 25 MG/ML (PHENERGAN) AMP IM ONE ×2 (10:30)
== END 2022-11-09 10:36 | disposition home or self-care (01) ==
LOC: EDUNIT# 10:03 → ER FS 10:04
DX: G43.009 Migraine without aura, not intractable, without status migrainosus (principal)
CPT/HCPCS: 99284